=== PATIENT | female | born 1955 | race Hispanic/Latino ===

== ENCOUNTER 2019-08-05 14:34 | Observation (INO) | payer MEDICARE, OTHER ==
[~2019-08-05] VITALS: Ht 160 cm; Wt 67.6 kg
[~2019-08-05 14:34] MED LIST: AMLODIPINE BESY10 MG PO; LOSARTAN POTASS25 MG PO; LYRICA50 MG PO; METFORMIN HCL500 MG PO; METOPROLOL TART25 MG PO
[2019-08-05 16:26] LABS: BASOPHILS % 0.3 % (0.0-1.0); EOSINOPHILS # (AUTO) 0.1 (0.0-0.4); EOSINOPHILS % 0.9 % (0.0-6.0); HEMATOCRIT 42.9 % (34.2-44.1); HEMOGLOBIN 13.8 g/dL (12.0-16.0); LYMPHOCYTES # (AUTO) 1.4 (1.0-3.2); LYMPHOCYTES % 23.4 % (18.0-39.1); MEAN CORPUSCULAR HEMOGLOBIN 27.9 pg (28-32); MEAN CORPUSCULAR HGB CONC 32.2 g/dL (31-35); MEAN CORPUSCULAR VOLUME 86.7 fL (81-99); MONOCYTES # (AUTO) 0.5 (0.2-0.8); MONOCYTES % 8.1 % (4.4-11.3); NEUTROPHILS # (AUTO) 3.9 (2.1-6.9); NEUTROPHILS % 66.8 % (38.7-80.0); PLATELET COUNT 176 x10e3/uL (140-360); RED BLOOD COUNT 4.95 x10e6/uL (3.6-5.1); RED CELL DISTRIBUTION WIDTH 13.2 % (11.7-14.4)
--- NOTE | 2019-08-05 16:26 | Emergency Department Note ---
History of Present Illnes History of Present Illness Chief Complaint: General Medicine Complaints History of Present Illness This is a 64 year old female arrives to the ED generalized malaise and weakness for one week, symptoms of and gradually worsening. Chief Complaint Comment C/O FEELING WEAK AND GENERALIZED MUSCLE ACHES X 1 WEEK NAUSEA NO VOMITING LAST MEAL EARLIER TODAY WHEN SHE HAD A COUPLE OF BITES NEVER SMOKED DENIES ETOH Historian: Patient, Family Member Arrival Mode: Car Duration (how long): hour(s) Progression: worsening Past Medical/Family History Physician Review I have reviewed the patient's past medical and family history. Any updates have been documented here. Past Medical History Recent Fever: Yes Clinical Suspicion of Infectio: Yes New/Unexplained Change in Ment: No Past Medical History: Hypertension, Diabetes, Hyperlipedemia Past Surgical History: Appendectomy, Hysterectomy, Pacer/AICD Other Last Tetanus: UNK Review of Systems Review of Systems Constitutional: Reports no symptoms EENTM: Reports no symptoms Cardiovascular: Reports no symptoms Respiratory: Reports as per HPI Gastrointestinal: Reports no symptoms Genitourinary: Reports no symptoms Musculoskeletal: Reports no symptoms Integumentary: Reports no symptoms Neurological: Reports no symptoms Psychological: Reports no symptoms Endocrine: Reports no symptoms Hematological/Lymphatic: Reports no symptoms Physical Exam Related Data Allergies: Coded Allergies: No Known Allergies (Unverified , 11/04/17) Triage Vital Signs Vital Signs Date Time Temp Pulse Resp B/P (MAP) Pulse Ox O2 Delivery O2 Flow Rate FiO2 08/05/19 14:42 100.0 75 20 142/69 92 Vital signs reviewed: Yes Physical Exam CONSTITUTIONAL Constitutional: Present well-developed, Present well-nourished HENT HENT: Present normocephalic, Present atraumatic, Present oropharynx clear/moist, Present nose normal HENT L/R: Present left ext ear normal, Present right ext ear normal EYES Eyes: Reports PERRL, Reports conjunctivae normal NECK Neck: Present ROM normal PULMONARY Pulmonary: Present effort normal, Present respiratory distress CARDIOVASCULAR Cardiovascular: Present regular rhythm, Present heart sounds normal, Present capillary refill normal, Present normal rate GASTROINTESTINAL Abdominal: Present soft, Present nontender, Present bowel sounds normal GENITOURINARY Genitourinary: Present exam deferred SKIN Skin: Present warm, Present dry MUSCULOSKELETAL Musculoskeletal: Present ROM normal NEUROLOGICAL Neurological: Present alert, Present oriented x 3, Present no gross motor or sensory deficits PSYCHOLOGICAL Psychological: Present mood/affect normal, Present judgement normal Results Laboratory Lab results reviewed: Yes Laboratory comments Laboratory Tests Test 08/05/19 18:42 08/05/19 16:17 White Blood Count 5.78 x10e3/uL (4.8-10.8) Red Blood Count 4.95 x10e6/uL (3.6-5.1) Hemoglobin 13.8 g/dL (12.0-16.0) Hematocrit 42.9 % (34.2-44.1) Mean Corpuscular Volume 86.7 fL (81-99) Mean Corpuscular Hemoglobin 27.9 pg (28-32) Mean Corpuscular Hemoglobin Concent 32.2 g/dL (31-35) Red Cell Distribution Width 13.2 % (11.7-14.4) Platelet Count 176 x10e3/uL (140-360) Neutrophils (%) (Auto) 66.8 % (38.7-80.0) Lymphocytes (%) (Auto) 23.4 % (18.0-39.1) Monocytes (%) (Auto) 8.1 % (4.4-11.3) Eosinophils (%) (Auto) 0.9 % (0.0-6.0) Basophils (%) (Auto) 0.3 % (0.0-1.0) Neutrophils # (Auto) 3.9 (2.1-6.9) Lymphocytes # (Auto) 1.4 (1.0-3.2) Monocytes # (Auto) 0.5 (0.2-0.8) Eosinophils # (Auto) 0.1 (0.0-0.4) Basophils # (Auto) 0.0 (0.0-0.1) Absolute Immature Granulocyte (auto 0.03 x10e3/uL (0-0.1) Sodium Level 138 mmol/L (136-145) Potassium Level 3.6 mmol/L (3.5-5.1) Chloride Level 101 mmol/L (98-107) Carbon Dioxide Level 27 mmol/L (22-29) Anion Gap 13.6 mmol/L (8-16) Blood Urea Nitrogen 17 mg/dL (7-26) Creatinine 0.89 mg/dL (0.57-1.11) Estimat Glomerular Filtration Rate > 60 ML/MIN (60-) BUN/Creatinine Ratio 19 (6-25) Glucose Level 142 mg/dL (74-118) Calcium Level 9.4 mg/dL (8.4-10.2) Total Bilirubin 0.4 mg/dL (0.2-1.2) Aspartate Amino Transf (AST/SGOT) 41 IU/L (5-34) Alanine Aminotransferase (ALT/SGPT) 36 IU/L (0-55) Alkaline Phosphatase 91 IU/L (40-150) Creatine Kinase 25 IU/L (29-168) Creatine Kinase MB 0.30 ng/mL (0-5.0) Troponin I 0.004 ng/mL (0-0.300) Total Protein 7.1 g/dL (6.5-8.1) Albumin 3.2 g/dL (3.5-5.0) Globulin 3.9 g/dL (2.3-3.5) Albumin/Globulin Ratio 0.8 (0.8-2.0) Imaging Imaging results reviewed: Yes Impressions IMPRESSION: 1. Lines and Tubes: Stable left upper chest multilead cardiac device. 2. Lungs are well-inflated. Patchy bibasilar opacities, which may reflect atelectasis. No consolidation or effusion. 3. Cardiomediastinal silhouette is normal. Pulmonary vasculature is normal. 4. No acute bony abnormalities. Procedures 12 Lead ECG Interpretation ECG Interpretation : ECG: ECG 1 Visual Effects Editor: Interpreted by ED physician Prior ECG tracings: reviewed ST segment elevation: III T wave inversion: V3, V4, V5, V6 Critical Care Time Total Critical Care Time (min): 35 Critical care time exclusive o: separately billable procedures Critcal care necessary due to: respiratory failure Assessment & Plan Medical Decision Making MDM 64-year-old female brought to the ED with shortness of breath, dyspnea and generalized malaise. Concerns of Covid 19 related illness Assessment & Plan Final Impression: (1) Dyspnea and respiratory abnormalities (2) Dyspnea Depart Disposition: ADMITTED Last Vital Signs Date Time Temp Pulse Resp B/P (MAP) Pulse Ox O2 Delivery O2 Flow Rate FiO2 08/05/19 14:42 100.0 75 20 142/69 92 Home Meds Reported Medications Pregabalin (LYRICA) 50 Mg Cap, 50 MG PO Q8H, #30 TAB 11/07/17 Losartan Potassium (LOSARTAN POTASSIUM) 25 Mg Tablet, 2 TAB PO DAILY 11/07/17 Metoprolol Tartrate (METOPROLOL TARTRATE) 25 Mg Tablet, 25 MG PO BID, TAB 11/07/17 Metformin Hcl (METFORMIN HCL) 500 Mg Tablet, 500 MG PO DAILY, #60 TAB 11/04/17 STEPHEN ANDRE, Aug 05, 2019 16:09
[2019-08-05 16:47] LABS: ALANINE AMINOTRANSFERASE 36 IU/L (0-55); ALBUMIN 3.2 g/dL (3.5-5.0); ALBUMIN/GLOBULIN RATIO 0.8 (0.8-2.0); ALKALINE PHOSPHATASE 91 IU/L (40-150); ANION GAP 13.6 mmol/L (8-16); BLOOD UREA NITROGEN 17 mg/dL (7-26); BUN/CREATININE RATIO 19 (6-25); CALCIUM 9.4 mg/dL (8.4-10.2); CARBON DIOXIDE 27 mmol/L (22-29); CHLORIDE 101 mmol/L (98-107); CREATINE KINASE 25 IU/L (29-168); CREATININE, SERUM 0.89 mg/dL (0.57-1.11); EST GLOMERULAR FILTRATION RATE > 60 ML/MIN (60-); GLUCOSE 142 mg/dL (74-118); POTASSIUM 3.6 mmol/L (3.5-5.1); SODIUM 138 mmol/L (136-145)
--- NOTE | 2019-08-05 17:17 | Diagnostic Imaging Report ---
Examination: Single AP view of the chest. COMPARISON: AP chest 11/06/2017 INDICATION: Weeks, pacemaker not working, muscle exam nausea IMPRESSION: 1. Lines and Tubes: Stable left upper chest multilead cardiac device. 2. Lungs are well-inflated. Patchy bibasilar opacities, which may reflect atelectasis. No consolidation or effusion. 3. Cardiomediastinal silhouette is normal. Pulmonary vasculature is normal. 4. No acute bony abnormalities. Signed by: Dr. Joey Muñiz M.D. on 08/05/2019 5:14 PM
[2019-08-05] MEDS ORDERED: ACETAMINOPHEN 325 MG TAB PO PRN (21:00)
[2019-08-05] MEDS ORDERED: DEXTROSE 50% SYRINGE 50 ML IV PRN (21:00)
[2019-08-05] MEDS ORDERED: ZOLPIDEM TARTRATE 5 MG TAB PO PRN (21:00)
[2019-08-05] MEDS ORDERED: CEFTRIAXONE SOD 1 GM/NS 50 ML 50 ML IV SCH (21:30)
[2019-08-05] MEDS: INSULIN REGULAR, HUMAN 100 UNIT/1 ML 3ML VIAL SQ SCH (21:34)
[2019-08-05] MEDS ORDERED: AZITHROMYCIN 500MG/NS 250 ML 250 ML IV SCH (22:00)
--- NOTE | 2019-08-05 22:11 | Consultation ---
DATE OF CONSULTATION: Pulmonary Critical Care Consultation CHIEF COMPLAINT: Malaise and fatigue. 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 She also has a history of diabetes and diabetic neuropathy. She now reports fatigue and malaise for several days. She has some mild dyspnea. She denies fevers or cough. She came to the emergency department and was found to have infiltrates on her chest x-ray. She had a COVID test, which is still pending. PAST SURGICAL HISTORY: Status post permanent pacemaker. PAST MEDICAL HISTORY: 1. Diabetes. 2. Hypertension. 3. No prior history of asthma or COPD. ALLERGIES: NO KNOWN DRUG ALLERGIES. SOCIAL HISTORY: The patient does not smoke or drink. FAMILY HISTORY: Family history is noncontributory. REVIEW OF SYSTEMS: The patient has no fever. The patient is not complaining of headache or neck pain. There is no chest pain. There is some mild dyspnea. There is no nausea or vomiting. There is no leg edema. PHYSICAL EXAMINATION: VITAL SIGNS: The patient is afebrile. The blood pressure is 148/69. HEENT: Shows no facial swelling or erythema. CARDIAC: Reveals regular rate and rhythm with normal S1 and S2. LUNGS: Auscultation of lungs reveals crackles at the bases. There is no wheezing. ABDOMEN: Soft and nontender. There is no rebound or guarding. EXTREMITIES: Shows no leg edema or calf tenderness. There is no cyanosis or clubbing. SKIN: Shows no rashes. NEUROLOGICAL: Shows no focal abnormalities. LABORATORY DATA: White blood cell count is 5.7 and the hemoglobin is 13.8. The platelet count is 176. The BUN to creatinine ratio is 17 to 0.89. RADIOGRAPHIC DATA: Shows bilateral infiltrates. IMPRESSION: 1. Viral pneumonia and possible COVID-19 infection. 2. Diabetes. 3. Hypertension. 4. History of a prior pacemaker. PLAN: 1. Judicious use of fluids. 2. Oxygen. 3. DVT prophylaxis. 4. Antipyretics. 5. Monitor and control blood sugars. 6. Monitor and control blood pressure. Dread Flood MD [facility]/[place] /[id number]
[2019-08-05] MEDS: PREGABALIN 50 MG CAP PO SCH (22:34)
--- NOTE | 2019-08-05 23:26 | NUR ---
Received patient from ED via stretcher. Alert and oriented. Patient on a telemetry. Assisted to bed . Bed locked. Call light within reached.
[2019-08-05 23:30] VITALS: BP 137/52
[2019-08-06] VITALS (7 sets, daily range): BP systolic 123–150; BP diastolic 52–67
[2019-08-06 05:33] LABS: BASOPHILS % 0.3 % (0.0-1.0); EOSINOPHILS % 0.6 % (0.0-6.0); HEMATOCRIT 42.6 % (34.2-44.1); HEMOGLOBIN 13.4 g/dL (12.0-16.0); LYMPHOCYTES # (AUTO) 1.4 (1.0-3.2); LYMPHOCYTES % 21.9 % (18.0-39.1); MEAN CORPUSCULAR HEMOGLOBIN 27.9 pg (28-32); MEAN CORPUSCULAR HGB CONC 31.5 g/dL (31-35); MEAN CORPUSCULAR VOLUME 88.6 fL (81-99); MONOCYTES # (AUTO) 0.4 (0.2-0.8); MONOCYTES % 6.5 % (4.4-11.3); NEUTROPHILS # (AUTO) 4.6 (2.1-6.9); NEUTROPHILS % 70.4 % (38.7-80.0); PLATELET COUNT 176 x10e3/uL (140-360); RED BLOOD COUNT 4.81 x10e6/uL (3.6-5.1)
[2019-08-06 05:42] LABS: ALANINE AMINOTRANSFERASE 32 IU/L (0-55); ALBUMIN/GLOBULIN RATIO 0.8 (0.8-2.0); ALKALINE PHOSPHATASE 88 IU/L (40-150); ANION GAP 13.8 mmol/L (8-16); BLOOD UREA NITROGEN 12 mg/dL (7-26); BUN/CREATININE RATIO 15 (6-25); CALCIUM 9.1 mg/dL (8.4-10.2); CARBON DIOXIDE 27 mmol/L (22-29); CHLORIDE 103 mmol/L (98-107); CREATININE, SERUM 0.81 mg/dL (0.57-1.11); EST GLOMERULAR FILTRATION RATE > 60 ML/MIN (60-); GLUCOSE 144 mg/dL (74-118); POTASSIUM 3.8 mmol/L (3.5-5.1); SODIUM 140 mmol/L (136-145)
[2019-08-06] MEDS: PREGABALIN 50 MG CAP PO SCH ×2 (06:05→14:01)
[2019-08-06] MEDS: INSULIN REGULAR, HUMAN 100 UNIT/1 ML 3ML VIAL SQ SCH ×3 (08:44→16:40)
[2019-08-06] MEDS: METOPROLOL TARTRATE 25 MG TAB PO SCH ×2 (08:45→16:37)
[2019-08-06] MEDS ORDERED: LOSARTAN POTASSIUM 100 MG TAB PO SCH (09:00)
--- NOTE | 2019-08-06 15:10 | Progress Note ---
DATE: SUBJECTIVE: The patient feels better. She has less dyspnea and less cough. She is not complaining of chest pain. Her COVID test is negative. PHYSICAL EXAMINATION: VITAL SIGNS: Blood pressure is 131/53, saturation is 97%. HEENT: No facial swelling or erythema. CARDIAC: Regular rate and rhythm with normal S1, S2. LUNGS: Auscultation of lungs reveals crackles at the bases. There is no wheezing. ABDOMEN: Soft, nontender. There is no rebound or guarding. EXTREMITIES: No leg edema or calf tenderness. There is no cyanosis or clubbing. SKIN: No rashes. NEUROLOGICAL: No focal abnormalities. LABORATORY DATA: White blood cell count is 6.5 and hemoglobin is 13.4. The platelet count is 176. BUN to creatinine ratio is normal. Other electrolytes are within normal limits. Albumin is 3. IMPRESSION: 1. Viral pneumonia and possible coronavirus disease-19 infection. 2. Diabetes. 3. Hypertension. PLAN: 1. Okay for discharge home. 2. Complete outpatient antibiotics. 3. Antipyretics. 4. Self quarantine. 5. Follow up with physician in 2 weeks. Dread Flood MD [facility]/[place] /[id number]
[2019-08-06] MEDS ORDERED: ENOXAPARIN SOD INJ 40 MG/0.4 ML SYR SC SCH (17:00)
[2019-08-06] MEDS ORDERED: MUCINEX DM ER1 EAC1 PO (17:46)
--- NOTE | 2019-08-06 18:06 | NUR ---
MD ordered for patient to go home with IS. Gave patient IS and patient demonstrated how to use x4. Patient denies any questions.
--- NOTE | 2019-08-06 18:44 | NUR ---
Gave patient discharge teaching, denies any questions. Patient left via wheelchair with all belongings.
--- NOTE | 2019-08-06 21:21 | History and Physical ---
HISTORY AND PHYSICAL, SHORT-STAY, AND DISCHARGE SUMMARY CONSULTING PHYSICIANS: Dr. Dread Flood. PRIMARY CARE PHYSICIAN: Dr. Dread Sykes. CHIEF COMPLAINT: Malaise and fatigue. HISTORY OF PRESENT ILLNESS: The patient is a 64-year-old female with a history of third-degree heart block several years ago, which required a permanent pacemaker at that time. She reported to the emergency department with complaints of fatigue and malaise for several days along with some mild shortness of breath. She denied any fever or cough. She has underlying diabetes and states her fingerstick blood glucose usually runs about 150 mg/dL at home. Per the emergency department physician's note, impression is dyspnea and respiratory abnormalities. Per Dr. Flood's note, impression is viral pneumonia and possible COVID-19 infection. PAST MEDICAL HISTORY: Diabetes, hypertension, and hyperlipidemia. PAST SURGICAL HISTORY: Appendectomy, hysterectomy, and pacemaker. PAST FAMILY HISTORY: Noncontributory. SOCIAL HISTORY: The patient denies tobacco, alcohol, or illicit drug use. ALLERGIES: NO KNOWN DRUG ALLERGIES. REVIEW OF SYSTEMS: GENERAL: The patient has no complaints of fever or chills. HEENT: Eyes and ears, no complaints. Nose, nasal congestion. RESPIRATORY: Mild shortness of breath. No dyspnea on exertion, productive cough with white phlegm. GENITOURINARY: No complaints of difficulty urinating. PSYCHIATRIC: No complaints of anxiety or depression. CARDIOVASCULAR: No chest pain or palpitations. GASTROINTESTINAL: No complaints of nausea, vomiting, diarrhea, or constipation. She eats well. MUSCULOSKELETAL: No complaints. NEUROLOGIC: No complaints. ENDOCRINE: No complaints. HEMATOLOGIC: No complaints. PHYSICAL EXAMINATION: VITAL SIGNS: Temperature 98.2, T-max 100.0, heart rate 92, blood pressure 123/62, respirations 16, and oxygen saturation 95%. BMI 26.39. GENERAL: Awake, alert, oriented, supine. LUNGS: Diminished with crackles bibasilarly. HEENT: EOMI. NECK: Supple. CARDIOVASCULAR: Regular rate and rhythm. No murmur. ABDOMEN: Bowel sounds positive. Soft, nontender. EXTREMITIES: No clubbing, cyanosis, or edema. No signs of DVT. NEUROLOGICAL: GCS 15. LABORATORY DATA: On admission, WBC 5.78, hemoglobin 13.8, hematocrit 42.9, and platelets 176. Sodium 138, potassium 3.6, chloride 101, CO2 of 27, anion gap 13.6, BUN 17, creatinine 0.89, estimated GFR greater than 60, glucose 142, calcium 9.4, total bilirubin 0.4, AST 41, ALT 36, and alkaline phosphatase 91. Creatine kinase 25, CK-MB 0.3, troponin I 0.004, total protein 7.1, albumin 3.2, and glucose 114. Serology; Dixon virus by PCR not detected on 08/04. The patient states when she got a dixon virus test, it was very uncomfortable for her. RADIOLOGY: Chest x-ray 08/04 showed stable left upper chest, multi-lead cardiac device. Lungs well inflated. Patchy basilar opacities which may reflect atelectasis. No consolidation or effusion. No 12-lead EKG in the chart. IMPRESSION AND DISCHARGE DIAGNOSES: 1. Viral pneumonia. 2. Controlled type 2 diabetes mellitus. 3. Hypertension, controlled. 4. History of a prior pacemaker placement during her stay. Judicious use of fluids was used, oxygen, deep venous thrombosis prophylaxis, antipyretics. I have ordered an incentive spirometer for patient to use at home. We will send her home with a prescription for Mucinex DM as this is likely viral. No antibiotic prescription at this time. The patient to follow up with her PCP, Dr. Sykes in 1-2 weeks. Follow up with Dr. Flood as directed. Time spent 60 minutes. Billing code [id number]. Dictated by Jhon Schmitz NP Mark Bradshaw MD [facility] /[id number]
--- OUTSIDE RECORDS SUMMARY | 2019-09-19 19:17 | XMS REPORT | Continuity of Care Document ---
Author Author [facility] t Organization [facility] Address [address] [place] [address] Phone Unavailable Care Team Providers Care Jd Edwards Developer Name Role Phone GARRET ENRIQUE, MD OSORIO PCP ELLIE BRUCE Attphys Unavailable GARRET, SANTIAGO Attphys Unavailable ELLIE BRUCE Admphys Unavailable GARRET, SANTIAGO Admphys Unavailable Payers Payer Name Policy Type Policy Number Effective Date Expiration Date Bella winkler [facility] [id number] 2019 00:00:00 [facility] Medicare A & B [id number] 2018 00:00:00 [facility] [id number] 2017 00:00:00 [facility] Problems Condition Name Condition Details Condition Category Status Onset Date Resolution Date Last Treatment Date Treating Clinician Comments Source Bradyarrhythmia Bradyarrhythmia Problem Active [facility] Presence of cardiac pacemaker Pacemaker Problem Active [facility] Pulmonary edema Pulmonary edema Problem Active [facility] Complete atrioventricular block Third degree AV block Problem Active [facility] Dyspnea and respiratory abnormality Problem Active [facility] Allergies, Adverse Reactions, Alerts Allergy Name Allergy Type Status Severity Reaction(s) Onset Date Inacti ve Date Treating Clinician Comments Source benzonatate DA Active CA 2016-05-16 00:00:00 [facility] Social History Social Habit Start Date Stop Date Quantity Comments Source Sex Assigned At 1955 00:00:00 1955 00:00:00 Female [facility] Medications Ordered Medication Name Filled Medication Name Start Date Stop Da te Current Medication? Ordering Clinician Indication Dosage Frequency Signature (SIG) Comments Components Source Guaifenesin/Dextromethorphan (Mucinex Dm Er 1,200-60 M g Tab) 1 Each TBMP.12HR Guaifenesin/Dextromethorphan (Mucinex Dm Er 1,200-60 Mg Tab) 1 Each TBMP.12HR 2019-08-06 17:46:00 Yes 1 Twice A Day [facility] Losartan Potassium Losartan Potassium Yes 2 Da citlali [facility] Metformin Hcl Metformin Hcl Yes 500 Daily [facility] Metoprolol Tartrate Metoprolol Tartrate Yes 25 Twice A Day [facility] Pregabalin (Lyrica) 50 Mg CAP Pregabalin (Lyrica) 50 Mg CAP Yes 50 Every 8 Hours [facility] Amlodipine Besylate Amlodipine Besylate 2017-11-07 00:00:00 No 10 Daily [facility] Vital Signs Vital Name Observation Time Observation Value Comments Source Body Temperature 2019-08-06 16:42:00 99.7 [degF] [facility] Weight 2019-08-06 02:26:00 149.06 [lb_av] [facility] BMI (Body Mass Index) 2019-08-06 02:26:00 26.4 kg/m2 [facility] Procedures This patient has no known procedures. Plan of Care Planned Activity Planned Date Details Comments Source Instructions COVID-19: 05/06/2019 [facility] Instructions Dyspnea [facility] Encounters Start Date/Time End Date/Time [facility] Ad[facility] ID Source 2017-11-04 07:35:00 2017-11-07 18:10:00 Discharged Inpatient 1 SANTIAGO COMBS [facility] [id number] [facility] Results Test Description Test Time Test Comments Results Result Comments Source Blood leukocytes automated count (number/volume) 2019-08-06 04:40:00 Test Item White Blood Count (test code = 6690-2) 6.49 4.8-10.8 [facility] erythrocytes automated count (number/volume)2019-08-06 04:40:00* Test Item Value Reference Range Interpretation Comments Red Blood Count (test code = 789-8) 4.81 3.6-5.1 [facility] Arlington[facility] hemoglobin measurement (moles/volume)2019-08-06 04:40:00* Test Item Value Reference Range Interpretation Comments Hemoglobin (test code = 90725-8) 13.4 12.0-16.0 [facility] ArlingtonAutomated blood hematocrit (volume fraction)2019-08-06 04:40:00* Test Item Value Reference Range Interpretation Comments Hematocrit (test code = 4544-3) 42.6 34.2-44.1 [facility] ArlingtonAutomated erythrocyte mean corpuscular estljn8734-40-92 04:40:00* Test Item Value Reference Range Interpretation Comments Mean Corpuscular Volume (test code = 787-2) 88.6 81-99 [facility] ArlingtonAutom[facility] erythrocyte mean corpuscular hemoglobin (mass per erythrocyte)2019-08-06 04:40:00* Test Item Value Reference Range Interpretation Comments Mean Corpuscular Hemoglobin (test code = 785-6) 27.9 28-32 [facility] ArlingtonAutomated erythrocyte mean corpuscular hemoglobin concentration measurement (mass/volume)2019-08-06 04:40:00* Test Item Value Reference Range Interpretation Comments Mean Corpuscular Hemoglobin Concent (test code = 786-4) 31.5 31-35 [facility] ArlingtonRDW YcpSo-Qop2325-42-16 04:40:00* Test Item Value Reference Range Interpretation Comments Red Cell Distribution Width (test code = 42862-2) 13.0 11.7 -14.4 [facility] ArlingtonAutomated blood platelet count (count/volume)2019-08-06 04:40:00* Test Item Value Reference Range Interpretation Comments Platelet Count (test code = 777-3) 176 140-360 [facility] ArlingtonAutomated blood segmented neutrophil count as percentage of total woptlbixrc6769-44-30 04:40:00* Test Item Value Reference Range Interpretation Comments Neutrophils (%) (Auto) (test code = 93400-6) 70.4 38.7-80.0 [facility] ArlingtonAutomated blood lymphocyte count as percentage ot total rgafsrkizl7669-60-60 04:40:00* Test Item Value Reference Range Interpretation Comments Lymphocytes (%) (Auto) (test code = 736-9) 21.9 18.0-39.1 [facility] ArlingtonAutomated blood monocyte count as percentage of total infrfijppr2290-39-15 04:40:00* Test Item Value Reference Range Interpretation Comments Monocytes (%) (Auto) (test code = 5905-5) 6.5 4.4-11.3 [facility] ArlingtonAutomated blood eosinophil count as percentage of total rwhemswtkp6858-54-89 04:40:00* Test Item Value Reference Range Interpretation Comments Eosinophils (%) (Auto) (test code = 713-8) 0.6 0.0-6.0 [facility] ArlingtonAutomated blood basophil count as percentage of total dxednutoqd5324-34-41 04:40:00* Test Item Value Reference Range Interpretation Comments Basophils (%) (Auto) (test code = 706-2) 0.3 0.0-1.0 [facility] ArlingtonFluoroscopic procedure less than one hour rgqxhpvh4771-60-78 04:40:00* Test Item Value Reference Range Interpretation Comments IM GRANULOCYTES % (test code = IM GRANULOCYTES %) 0.3 0.0- 1.0 [facility] ArlingtonAutomated blood neutrophil count 2019-08-06 04:40:00* Test Item Value Reference Range Interpretation Comments Neutrophils # (Auto) (test code = 751-8) 4.6 2.1-6.9 [facility] ArlingtonBlood lymphocytes count (number/volume) 2019-08-06 04:40:00* Test Item Value Reference Range Interpretation Comments Lymphocytes # (Auto) (test code = 92242-3) 1.4 1.0-3.2 [facility] ArlingtonBlood monocytes automated count (number/volume)2019-08-06 04:40:00* Test Item Value Reference Range Interpretation Comments Monocytes # (Auto) (test code = 742-7) 0.4 0.2-0.8 [facility] ArlingtonAutomated blood eosinophil count 2019-08-06 04:40:00* Test Item Value Reference Range Interpretation Comments Eosinophils # (Auto) (test code = 711-2) 0.0 0.0-0.4 [facility] ArlingtonAutomated blood basophil count (count/volume)2019-08-06 04:40:00* Test Item Value Reference Range Interpretation Comments Basophils # (Auto) (test code = 704-7) 0.0 0.0-0.1 [facility] ArlingtonFluoroscopic procedure less than one hour xvmactua6039-13-93 04:40:00* Test Item Value Reference Range Interpretation Comments Absolute Immature Granulocyte (auto (tari t code = Absolute Immature Granulocyte (auto) 0.02 0-0.1 [facility] or plasma sodium measurement (moles/volume)2019-08-06 04:40:00* Test Item Value Reference Range Interpretation Comments Sodium Level (test code = 2951-2) 140 136-145 [facility]erum or plasma potassium measurement (moles/volume)2019-08-06 04:40:00* Test Item Value Reference Range Interpretation Comments Potassium Level (test code = 2823-3) 3.8 3.5-5.1 [facility] or plasma chloride measurement (moles/volume)2019-08-06 04:40:00* Test Item Value Reference Range Interpretation Comments Chloride Level (test code = 2075-0) 103 98-107 [facility] Hospitalerum or plasma carbon dioxide, total measurement (moles/volume)2019-08-06 04:40:00* Test Item Value Reference Range Interpretation Comments Carbon Dioxide Level (test code = 2028-9) 27 22-29 [facility]erum or plasma anion ltt0052-13-76 04:40:00* Test Item Value Reference Range Interpretation Comments Anion Gap (test code = 68795-4) 13.8 8-16 [facility] or plasma urea nitrogen measurement (mass/volume)2019-08-06 04:40:00* Test Item Value Reference Range Interpretation Comments Blood Urea Nitrogen (test code = 3094-0) 12 7-26 [facility] or plasma creatinine measurement (mass/volume)2019-08-06 04:40:00* Test Item Value Reference Range Interpretation Comments Creatinine (test code = 2160-0) 0.81 0.57-1.11 [facility] or plasma urea nitrogen/creatinine mass kmkmg5360-95-28 04:40:00* Test Item Value Reference Range Interpretation Comments BUN/Creatinine Ratio (test code = 3097-3) 15 6-25 [facility] ArlingtonEstimated glomerular filtration rate (GFR) yrnjdaacxiusg7940-55-95 04:40:00* Test Item Value Reference Range Interpretation Comments Estimat Glomerular Filtration Rate (test code = 520154923) > 60 >60 Ranges were taken from the National Kidney Disease Education Program and the [facility] literature.Reference ranges:60 or greater: Smxzmt92-58 ( for 3 consecutive months): Chronic kidney disease 15 or less: Kidney failureTexas Health Heart & Vascular Hospital ArlingtonGlucose rtgmzytchjl2067-38-58 04:40:00* Test Item Value Reference Range Interpretation Comments Glucose Level (test code = KTC4186) 144 74-118 [facility]er[facility] or plasma calcium measurement (mass/volume)2019-08-06 04:40:00* Test Item Value Reference Range Interpretation Comments Calcium Level (test code = 61706-6) 9.1 8.4-10.2 [facility]erum or plasma total bilirubin measurement (mass/volume)2019-08-06 04:40:00* Test Item Value Reference Range Interpretation Comments Total Bilirubin (test code = 1975-2) 0.4 0.2-1.2 [facility] ArlingtonFluoroscopic procedure less than one hour bteohytx8944-53-13 04:40:00* Test Item Value Reference Range Interpretation Comments Aspartate Amino Transf (AST/SGOT) (test code = Aspartate Amino Transf (AST/SGOT)) 35 5-34 [facility] Hospitalerum or plasma alanine aminotransferase measurement (enzymatic activity/volume)2019-08-06 04:40:00* Test Item Value Reference Range Interpretation Comments Alanine Aminotransferase (ALT/SGPT) (test code = 1742-6) 32 0-55 [facility] Hospitalerum or plasma protein measurement (mass/volume)2019-08-06 04:40:00* Test Item Value Reference Range Interpretation Comments Total Protein (test code = 2885-2) 7.0 6.5-8.1 [facility] Hospitalerum or plasma albumin measurement (mass/volume)2019-08-06 04:40:00* Test Item Value Reference Range Interpretation Comments Albumin (test code = 1751-7) 3.0 3.5-5.0 [facility] ArlingtonPlasma globulin measurement (mass/volume) 2019-08-06 04:40:00* Test Item Value Reference Range Interpretation Comments Globulin (test code = 24982-1) 4.0 2.3-3.5 [facility] Hospitalerum or plasma albumin/globulin mass cegpt3050-53-29 04:40:00* Test Item Value Reference Range Interpretation Comments Albumin/Globulin Ratio (test code = 1759-0) 0.8 0.8-2.0 [facility]er[facility] or plasma alkaline phosphatase measurement (enzymatic activity/volume)2019-08-06 04:40:00* Test Item Value Reference Range Interpretation Comments Alkaline Phosphatase (test code = 6768-6) 88 40-150 [facility] ArlingtonCapillary blood glucose measurement by glucometer (mass/volume)2019-08-05 21:32:00* Test Item Value Reference Range Interpretation Comments Bedside Glucose (test code = 69930-6) 114 70-120 Meter ID: [id number] Health Heart & Vascular Hospital ArlingtonFluoroscopic procedure less than one hour bgooejee0224-92-67 18:42:00* Test Item Value Reference Range Interpretation Comments Coronavirus (PCR) (test code = Coronavirus (PCR)) NOT DETECTED NOTD ETECTED SARS-COV2/RT-PCRNegative results do not preclude SARS-CoV-2 infection and should not be used as the sole basis for patient management decisions. Negative result s must be combined with clinical observations, patient history, and epidemiologi sung information. A false negative result may occur if a specimen is improperly c ollected, transported or handled.The limit of detection for this assay is 250 co pies/mLThe SARS-CoV-2 test is a rapid, real-time RT-PCR test intended for the qu alitative detection of nucleic acid from SARS-CoV-2 in nasopharyngeal swab speci men collected from individuals suspected of COVID-19 by their healthcare provide r. This test has not been Food and Drug Administration (FDA) cleared or approved and has been authorized by FDA under an Emergency Use Authorization (EUA). This EUA will be effective until the declaration that circumstances exist justifying the authorization of the emergency use of in vitro diagnostic test for detectio n and or diagnosis of COVID-19 is terminated under section 564(b) of the Act, or the the EUA is revoked under 564(g) of the ACT.Testing performed by [address] SINGLE (PORTABLE)2019-08-05 17:13:00 [place] [address] Patient Name: GAYLE CHRISTIAN MR #: [id number] : 1955 Age/Sex: 64/F Req #: [id number] Adm Physician: ELLIE BRUCE MD Ordered by: STEPHEN ANDRE DO Report #: [id number] Location: [facility] Room/Bed: [place] [address] Procedure: [id number] DX/CHEST SINGLE (PORTABLE) Exam Date: 08/05/19 Exam Time: 1644 REPORT STATUS: Signed Examination: S alex AP view of the chest. COMPARISON: AP chest 11/06/2017 INDICATION: Weeks, pacemaker not working, muscle exam nausea IMPRESSION: 1. Lines and Tubes: Stable left upper chest multilead cardiac device. 2. Lungs are well-inflated. Patchy bibasilar opacities, which may reflect atelectasis. No consolidation or effusion. 3. Cardiomediastinal silhouette is normal. Pu lmonary vasculature is normal. 4. No acute bony abnormalities. Signed by : Dr. Joey Valladares M.D. on 08/05/2019 5:14 PM Dictated By: JOEY GRIFFIN MD 13 Transcri bed By: SALLY on 08/05/191713 COPY TO: STEPHEN ANDRE DO Serum or plasma creatine kinase measurement (enzymatic activity/volume) 2019-08-05 16:17:00* Test Item Value Reference Range Interpretation Comments Creatine Kinase (test code = 2157-6) 25 29-168 [facility]er[facility] or plasma creatine kinase MB measurement (mass/volume)2019-08-05 16:17:00* Test Item Value Reference Range Interpretation Comments Creatine Kinase MB (test code = 03283-2) 0.30 0-5.0 [facility] ArlingtonTroponin I measurement by highly sensitive enzyme wzvrwjuvzbn2209-14-82 16:17:00* Test Item Value Reference Range Interpretation Comments Troponin I (test code = 35728-7) 0.004 0-0.300 [facility] ArlingtonTHYROID PROFILE W/IED1290-27-18 10:28:00 * Test Item Value Reference Range Interpretation Comments T3 UPTAKE (test code = T3UP) 34.0 % 30.0-40.0 N T4 (THYROXINE) (test code = T4) 9.7 ug/dL 4.5-13.9 N T7 (FREE THYROXINE INDEX) (test code = T7) 3.29 FTI 1.3-5.1 N THYROID STIMULATING HORMONE (test code = TSH) 1.460 uIU/mL 0.36-3.7 4 N TSH REFERENCE RANGES: EUTHYROID: 0.35 - 4.3 mIU/mL HYPO : > 5.5 mIU/mL HYPER : < 0.35 mIU/mL - XR RIBS UNI W/CXR 3+V SF9561-63-57 09:42:00 [facility] 1955 Age/S:63 /F [address] [facility] Unit#:[id number] Loc: [place] [address] Phys: Ellie Vaughn DO Dis Date: PHONE #: [phone] Status: REG CLI FAX #: [phone] Exam Date: 05/03/2018 Reason: FALL AT HOME SEVERE PAIN EXAMS: CPT CODE: [id number] XR RIBS UNI W/CXR 3+V [place] [address] HISTORY: Fall and pain. COMPARISON: None available. Chest x-ray and right rib series: No pneumothorax. The lungs are clear of infiltrates, effusion or congestion. Left ICD with the leads in the right atrium and right ventricle. Cardiac and the mediastinal silhouette are normal. Nondisplaced right posterolateral seventh and eighth rib fractures. IMPRESSION: Nondisplaced posterior lateral right seventh and eighth rib fractures. No pneumothorax. The lungs are clear. Electr onically Signed by Rehan Luis on 05/03/2018 at 0942 Reported and signed by: Billy Luis M.D. CC: Ellie Villanueva DO Technologist: MATTHEW CASTILLO, RT(R),CT Trnscrpt Data: 05/03/2018 (0942) t.FRANCESR.TH4 Orig Print D/T: S: 05/03/2018 (0738) PAGE 1 Signed Report ECHO COMPLETE (ECHOCARDIOGRAM)2017-11-08 16:42:00 [place] [address] Patient Name : GAYLE CHRISTIAN MR #: [id number] : 1955 Age/Sex: 62/F Adm Physician : SANTIAGO COMBS MD Admit Date : 11/04/17 Location : ICU Room/Bed : ICU 1953 REPORT: Cardiology Report DATE OF STUDY: ECHOCARDIOGRAM ATTENDING PHYSICIAN: Dr. Santiago alcantara. Previous echocardiogram was on November 04, 2017. Please refer t o that report. The study is suboptimal in quality compared to the previo us echocardiogram. The left ventricular apex is poorly visualized. M-MO DE: Top normal left atrial size. Normal left ventricular wall thickness. B orderline left ventricular contractility. Normal mitral and aortic valves. No pericardial effusion. SECTOR SCAN: Suboptimal study. Poor image qual ity. Normal chamber wall dimensions. Borderline left ventricular contractil ity. [place] may be hypokinetic. Mitral, aortic and tricuspid valves are gross ly normal. There is no pericardial effusion. Pacemaker wires seen in the ri ght ventricle and right atrium. CARDIAC DOPPLER STUDY WITH COLOR: Trace mitral and tricuspid regurgitation. Evidence of diastolic dysfunction. CONCLUSIONS: 1. Suboptimal study with poorly visualized left ventricular ap ex. Compared to the previous echocardiogram on November 04, 2017, the left ventricular image is much poorer in quality. The apex may be slightly hyp okinetic. 2. Atrioventricular pacemaker present on the right side. 3. Diasto lic dysfunction. 4. Trace mitral and tricuspid regurgitation. Job#: [id number] EV cc: DANIA COMBS MD Signature Date Dictated By: JANICE NICHOLS MD Transcribed By: EDS on 11/08/17 <Electronically signed by JANICE NICHOLS MD> <<Signature on File>>11/18/17 1244 COPY TO: [facility]ANGEHRWQX6600-17-35 18:01:00 [place] [address] Patient Name: GAYLE CHRISTIAN MR #: [id number] : [birth year] Age/Sex: 62/F Req #: [id number] Adm Physician: SANTIAGO MCDOWELL MD Ordered by: SANTIAGO COMBS MD Report #: [id number] Location: ICU Room/Bed: [place] [address] Procedure: [id number] US/US LI ENE Exam Date: 11/07/17 Exam Time: 1639 REPORT STATUS: Signed EXAM: Right Upper Quadrant Ultrasound INDICATION: COMPARISON: None. TECHNIQUE: Transverse and longitudinal images of the right upper abdomen were obtained. FINDINGS: Liver: Size: 15.4 cm in the right midclavicular line, normal Appearance: Increa sed echogenicity, smooth contour Mass: No focal masses Gallbladder: Stones/Sludge: None Wall: 0.2 cm Appearance: No pericholecy stic fluid or hydrops. Sonographic Dawkins's Sign: Negative Bile Du cts: Intrahepatic Ducts: No dilatation Extrahepatic Ducts: Common bile duct measures 0.3 cm, no dilatation Pancreas: Limited visualize d pancreas is grossly unremarkable. Right Kidney: Size: 10.7 cm Echogenicity: Normal Parenchymal thickness: Normal Collecti ng system: No hydronephrosis Stones: None Cyst/Mass: None Ves sels: Aorta: Visualized portions are normal Inferior Vena Cava: Vi sualized portions are normal Main Portal Vein: 1 cm, normal size with hep atopetal flow. Free Fluid: No ascites or pleural effusion IMPRE SSION: Hepatic steatosis. Otherwise, unremarkable right upper quadrant ultraso und. Signed by: Dr. Venu Davison MD on 11/07/2017 6:04 PM Dictated By: VENU DAVISON MD 1804 Transcribed By: SALLY on 11/07/174 COPY TO: SANTIAGO KONG MD Bedside Okvwaaq6699-06-12 17:17:00* Test Item Value Reference Range Interpretation Comments Bedside Glucose (test code = 07700-6) 104 70-120 Meter ID: [id number] [facility] Spine & Surgical Hospitalodium Level 2017-11-07 05:17:00* Test Item Value Reference Range Interpretation Comments Sodium Level (test code = 2951-2) 141 136-145 [facility] ArlingtonPotassium Ynefu3429-28-94 05:17:00* Test Item Value Reference Range Interpretation Comments Potassium Level (test code = 2823-3) 4.5 3.5-5.1 [facility] ArlingtonChloride Uuktj7313-57-82 05:17:00* Test Item Value Reference Range Interpretation Comments Chloride Level (test code = 2075-0) 105 98-107 [facility] ArlingtonCarbon Dioxide Xzghy6352-93-82 05:17:00* Test Item Value Reference Range Interpretation Comments Carbon Dioxide Level (test code = 2028-9) 24 22-29 [facility] ArlingtonAnion Yeq1532-87-55 05:17:00* Test Item Value Reference Range Interpretation Comments Anion Gap (test code = 39402-1) 16.5 8-16 H [facility] ArlingtonBlood Urea Ocpvgnxp9751-61-71 05:17:00* Test Item Value Reference Range Interpretation Comments Blood Urea Nitrogen (test code = 3094-0) 21 7-26 [facility] ArlingtonCreatinine2018-09-18 05:17:00* Test Item Value Reference Range Interpretation Comments Creatinine (test code = 2160-0) 0.77 0.57-1.11 [facility] ArlingtonBUN/Creatinine Jdnvr6178-26-61 05:17:00* Test Item Value Reference Range Interpretation Comments BUN/Creatinine Ratio (test code = 3097-3) 27 6-25 H [facility] ArlingtonEstimat Glomerular Filtration Rate 2017-11-07 05:17:00* Test Item Value Reference Range Interpretation Comments Estimat Glomerular Filtration Rate (test code = 237432398) 60- >60 Ranges were taken from the National Kidney Disease Education Program and the [facility] literature.Reference ranges:60 or greater: Vrxggk65-52 ( for 3 consecutive months): Chronic kidney disease 15 or less: Kidney failureTexas Health Heart & Vascular Hospital ArlingtonGlucose Ymobs5954-03-36 05:17:00* Test Item Value Reference Range Interpretation Comments Glucose Level (test code = FVX5249) 134 74-118 H [facility] ArlingtonCalcium Mrumu5986-36-40 05:17:00* Test Item Value Reference Range Interpretation Comments Calcium Level (test code = 99619-5) 9.7 8.4-10.2 [facility] ArlingtonTotal Lwwyafzwg2583-77-17 05:17:00* Test Item Value Reference Range Interpretation Comments Total Bilirubin (test code = 1975-2) 0.9 0.2-1.2 [facility] ArlingtonAspartate Amino Transf (AST/SGOT) 2017-11-07 05:17:00* Test Item Value Reference Range Interpretation Comments Aspartate Amino Transf (AST/SGOT) (test code = Aspartate Amino Transf (AST/SGOT)) 16 5-34 [facility] ArlingtonAlanine Aminotransferase (ALT/SGPT) 2017-11-07 05:17:00* Test Item Value Reference Range Interpretation Comments Alanine Aminotransferase (ALT/SGPT) (test code = 1742-6) 45 0-55 [facility] ArlingtonTotal Uzodljq4462-12-76 05:17:00* Test Item Value Reference Range Interpretation Comments Total Protein (test code = 2885-2) 7.1 6.5-8.1 [facility] ArlingtonAlbumin2018-09-18 05:17:00* Test Item Value Reference Range Interpretation Comments Albumin (test code = 1751-7) 3.2 3.5-5.0 L [facility] ArlingtonGlobulin2018-09-18 05:17:00* Test Item Value Reference Range Interpretation Comments Globulin (test code = 99556-0) 3.9 2.3-3.5 H [facility] ArlingtonAlbumin/Globulin Atxbt0919-75-99 05:17:00 * Test Item Value Reference Range Interpretation Comments Albumin/Globulin Ratio (test code = 1759-0) 0.8 0.8-2.0 [facility] ArlingtonAlkaline Gjhiokbcxuv1782-30-66 05:17:00* Test Item Value Reference Range Interpretation Comments Alkaline Phosphatase (test code = 6768-6) 93 40-150 [facility] ArlingtonFerritin2018-09-17 19:15:00* Test Item Value Reference Range Interpretation Comments Ferritin (test code = 2276-4) 312.90 4.63-204.00 H [facility] ArlingtonIron Kpozg7115-71-54 19:02:00* Test Item Value Reference Range Interpretation Comments Iron Level (test code = 2498-4) 22 50-170 L [facility] ArlingtonCHEST SINGLE (PORTABLE)2017-11-06 12:49:00 [place] [address] Patient Name: GAYLE CHRISTIAN MR #: [id number] : 1955 Age/Sex: 62/F Req #: [id number] Adm Physician: SANTIAGO COMBS MD Ordered by: JANICE NICHOLS MD Report #: [id number] Location: ICU Room/Bed: [place] [address] Procedure: [id number] DX/CHEST SINGLE (PORTABLE) Exam Date: Exam Time: REPO RT STATUS: Signed Examination: Single AP view of the chest. COMPARISON: November 04, 2017 INDICATION: Postoperative for pacemaker DISCUS BALDEMAR: Lines/tubes: Interval placement of a 2-lead pacemaker with leads ove rlying the right atrial appendage and right ventricle. Lungs: Central pu lmonary venous congestion. No consolidation. Pleura: There is no pleural e ffusion or pneumothorax. Heart and mediastinum: The heart and the mediasti num are unremarkable. Bones and soft tissues: No acute bony abnormalities. IMPRESSION: Left sided 2 lead pacemaker placed. No pneumothorax . Signed by: Dr. Mecca Mcgregor M.D. on 11/06/2017 12:50 PM Dictated By: MECCA MCGREGOR MD 1250 COPY TO: JANICE NICHOLS MD ECHO COMPLETE (ECHOCARDIOGRAM)2017-11-05 20:18:00 [place] [address] Patient Name : GAYLE CHRISTIAN MR #: [id number] : 1955 Age/Sex: 62/F Adm Physician : SANTIAGO COMBS MD Admit Date : 11/04/17 Location : ICU Room/Bed : [place] [address] REPORT: Cardiology Report DATE OF STUDY: ECHOCARDIOGRAM ATTENDING PHYSICIAN: Dr. Nichols. M-MODE: Normal chamber wall dimensions. Normal contractility. Normal m itral and aortic valves. No pericardial effusion. SECTOR SCAN: Normal ty mber wall dimensions. Normal contractility. Normal mitral, aortic, and tric uspid valves. No pericardial effusion. CARDIAC DOPPLER STUDY WITH COLOR: Trace mitral tricuspid regurgitation. Pulmonary artery systolic pressure est imated at 22 mmHg. CONCLUSIONS 1. Left ventricular ejection fraction is a pproximately 65%. 2. Trace mitral and tricuspid regurgitation. D Job#: [id number] AKU Si gnature Date Dictated By: JANICE NICHOLS MD Transcribed By: EDS on 11/05/17 <Electronically signed by JANICE NICHOLS MD><<Signature on File>> 11/08/17 1010 COPY TO: PELVIS AP 1-2 [id number] 12:01:00 [place] [address] Patient Name: GAYLE CHRISTIAN MR #: [id number] : 1955 Age/Sex: 62/F Req #: [id number] Adm Physician: JANICE MORAN MD Ordered by: SANTIAGO COMBS MD Report #: [id number] Location: [facility] Room/Bed: [place] [address] Procedure: [id number] DX/PELVIS AP 1-2 VIEWS Exam Date: 11/05/17 Exam Time: 1145 REPORT STATUS: Signed Pelvis CPT code: 33354 Indication: Tailbo ne pain Technique: Portable AP image of the pelvis obtained. Compariso n: None Findings: No diastases of the pubic symphysis or sacroiliac chase ints. No evidence of fracture, dislocation, focal osseous lesions. The distal coccyx is obscured due to bowel gas and soft tissues. No degenerative changes of the hips or spine. IMPRESSION: No osseous abnormalities to explain pain. If there is concern for osteomyelitis, bone scan or MRI are more sensiti ve modalities to identify osteomyelitis. Signed by: Dr. Arcelia Hicks MD on 11/05/2017 12:03 PM Dictated By: ARCELIA HICKS MD Electronica lly Signed By: ARCELIA HICKS MD on 11/05/17 1203 Transcribed By: SALLY on 11/05/17 1203 COPY TO: SANTIAGO COMBS MD Magnesium Level 2017-11-05 11:19:00* Test Item Value Reference Range Interpretation Comments Magnesium Level (test code = 33829-6) 1.7 1.3-2.1 [facility] ArlingtonTriglycerides Dklpd0223-69-78 05:36:00* Test Item Value Reference Range Interpretation Comments Triglycerides Level (test code = 2571-8) 101 0-149 [facility] ArlingtonCholesterol Tgemj7105-82-68 05:36:00* Test Item Value Reference Range Interpretation Comments Cholesterol Level (test code = 2093-3) 155 0-199 Less than 200 mg/dL Low Veps291 - 239 mg/dL Borderline Exwp313 m g/dl and greater High Risk [facility] ArlingtonLDL Iggohpkedfo9944-75-90 05:36:00* Test Item Value Reference Range Interpretation Comments LDL Cholesterol (test code = 2089-1) 86 60-130 [facility] ArlingtonHDL Piobjdyrgeq4438-69-20 05:36:00* Test Item Value Reference Range Interpretation Comments HDL Cholesterol (test code = 2085-9) 49 40-60 [facility] ArlingtonCholesterol/HDL Mdkrn6507-70-80 05:36:00 * Test Item Value Reference Range Interpretation Comments Cholesterol/HDL Ratio (test code = 9830-1) 3.2 3.0-3.6 [facility] ArlingtonWhite Blood Vsfrt7844-74-80 04:57:00* Test Item Value Reference Range Interpretation Comments White Blood Count (test code = 6690-2) 9.04 4.8-10.8 [facility] ArlingtonRed Blood Tgdrl6317-94-00 04:57:00* Test Item Value Reference Range Interpretation Comments Red Blood Count (test code = 789-8) 4.70 3.6-5.1 [facility] ArlingtonHemoglobin2018-09-16 04:57:00* Test Item Value Reference Range Interpretation Comments Hemoglobin (test code = 66401-5) 13.2 12.0-16.0 [facility] ArlingtonHematocrit2018-09-16 04:57:00* Test Item Value Reference Range Interpretation Comments Hematocrit (test code = 4544-3) 40.5 34.2-44.1 [facility] ArlingtonMean Corpuscular Xgrpll9209-63-11 04:57:00* Test Item Value Reference Range Interpretation Comments Mean Corpuscular Volume (test code = 787-2) 86.2 81-99 [facility] ArlingtonMean Corpuscular Kscgvcycwm1442-90-82 04:57:00* Test Item Value Reference Range Interpretation Comments Mean Corpuscular Hemoglobin (test code = 785-6) 28.1 28-32 [facility] ArlingtonMean Corpuscular Hemoglobin Concent 2017-11-05 04:57:00* Test Item Value Reference Range Interpretation Comments Mean Corpuscular Hemoglobin Concent (test code = 786-4) 32.6 31-35 [facility] ArlingtonRed Cell Distribution Yooww4004-73-26 04:57:00* Test Item Value Reference Range Interpretation Comments Red Cell Distribution Width (test code = 81456-1) 13.0 11.7 -14.4 [facility] ArlingtonPlatelet Vlqfx2670-08-51 04:57:00* Test Item Value Reference Range Interpretation Comments Platelet Count (test code = 777-3) 244 140-360 [facility] ArlingtonNeutrophils (%) (Auto)2017-11-05 04:57:00 * Test Item Value Reference Range Interpretation Comments Neutrophils (%) (Auto) (test code = 54641-7) 73.2 38.7-80.0 [facility] ArlingtonLymphocytes (%) (Auto)2017-11-05 04:57:00 * Test Item Value Reference Range Interpretation Comments Lymphocytes (%) (Auto) (test code = 736-9) 17.9 18.0-39.1 L [facility] ArlingtonMonocytes (%) (Auto)2017-11-05 04:57:00* Test Item Value Reference Range Interpretation Comments Monocytes (%) (Auto) (test code = 5905-5) 6.4 4.4-11.3 [facility] ArlingtonEosinophils (%) (Auto)2017-11-05 04:57:00 * Test Item Value Reference Range Interpretation Comments Eosinophils (%) (Auto) (test code = 713-8) 1.9 0.0-6.0 [facility] ArlingtonBasophils (%) (Auto)2017-11-05 04:57:00* Test Item Value Reference Range Interpretation Comments Basophils (%) (Auto) (test code = 706-2) 0.3 0.0-1.0 [facility] ArlingtonIM GRANULOCYTES %2017-11-05 04:57:00* Test Item Value Reference Range Interpretation Comments IM GRANULOCYTES % (test code = IM GRANULOCYTES %) 0.3 0.0- 1.0 [facility] ArlingtonNeutrophils # (Auto)2017-11-05 04:57:00* Test Item Value Reference Range Interpretation Comments Neutrophils # (Auto) (test code = 751-8) 6.6 2.1-6.9 [facility] ArlingtonLymphocytes # (Auto)2017-11-05 04:57:00* Test Item Value Reference Range Interpretation Comments Lymphocytes # (Auto) (test code = 62823-1) 1.6 1.0-3.2 [facility] ArlingtonMonocytes # (Auto)2017-11-05 04:57:00* Test Item Value Reference Range Interpretation Comments Monocytes # (Auto) (test code = 742-7) 0.6 0.2-0.8 [facility] ArlingtonEosinophils # (Auto)2017-11-05 04:57:00* Test Item Value Reference Range Interpretation Comments Eosinophils # (Auto) (test code = 711-2) 0.2 0.0-0.4 [facility] ArlingtonBasophils # (Auto)2017-11-05 04:57:00* Test Item Value Reference Range Interpretation Comments Basophils # (Auto) (test code = 704-7) 0.0 0.0-0.1 [facility] ArlingtonAbsolute Immature Granulocyte (auto 2017-11-05 04:57:00* Test Item Value Reference Range Interpretation Comments Absolute Immature Granulocyte (auto (tari t code = Absolute Immature Granulocyte (auto) 0.03 0-0.1 [facility] ArlingtonCreatine Klsatg9320-13-77 19:46:00* Test Item Value Reference Range Interpretation Comments Creatine Kinase (test code = 2157-6) 43 29-168 [facility] ArlingtonCreatine Kinase QZ3966-87-12 19:46:00* Test Item Value Reference Range Interpretation Comments Creatine Kinase MB (test code = 03672-1) 0.50 0-5.0 [facility] ArlingtonTroponin F1487-01-95 19:46:00* Test Item Value Reference Range Interpretation Comments Troponin I (test code = YMP1853) 0.034 0-0.300 [facility] ArlingtonCHEST SINGLE (PORTABLE)2017-11-04 06:06:00 [facility] [address] [place] [address] Patient Name: GAYLE CHRISTIAN MR #: [id number] : 1955 Age/Sex: 62/F Req #: [id number] Adm Physician: Ordered by: TESFAYE JOHN MD Report #: [id number] Location: ER Room/Bed: Procedure: [id number] DX/CHEST SINGLE (PORTABLE) Exam Date: 11/04/17 Exam Time: 0435 REPORT STA TUS: Signed EXAMINATION: CHEST SINGLE (PORTABLE) INDICATION: Chest discomfort COMPARISON: None FINDINGS: TUBES and JOE ES: None. LUNGS: Lungs are well inflated. Lungs are clear. There is mi ld prominence of the central pulmonary vasculature, consistent with pulmonary venous congestion. PLEURA: No pleural effusion or pneumothorax. HEA RT AND MEDIASTINUM: The cardiomediastinal silhouette is unremarkable. BONES AND SOFT TISSUES: No acute osseous lesion. Soft tissues are unremarkab le. UPPER ABDOMEN: No free air under the diaphragm. IMPRESSION: No acute thoracic abnormality. Signed by: Dr. Donya Iverson M.D. on 11/04 6:06 AM Dictated By: DONYA RAYMOND MD 5 Transcribed By: SALLY on 605 COPY TO: TESFAYE JOHN MD Free Thyroxine Index 2017-11-04 05:04:00* Test Item Value Reference Range Interpretation Comments Free Thyroxine Index (test code = 52333-7) 2.3775 1.4-3.8 [facility] ArlingtonThyroxine (T4)2017-11-04 05:04:00* Test Item Value Reference Range Interpretation Comments Thyroxine (T4) (test code = 3026-2) 8.63 4.5-10.9 Our current method for Total T4 is not recommended for use as the only marker fo r evaluating patients for thyroid disorders.[facility] ArlingtonTriiodothyronine (T3) Litybf1412-77-82 05:04:00* Test Item Value Reference Range Interpretation Comments Triiodothyronine (T3) Uptake (test code = 3050-2) 27.55 22.5 -37.0 [facility] ArlingtonThyroid Stimulating Hormone (TSH) 2017-11-04 05:04:00* Test Item Value Reference Range Interpretation Comments Thyroid Stimulating Hormone (TSH) (test code = 05892-8) 1.984 0.350-4.940 [facility] ArlingtonProthrombin Nngr8076-13-57 04:17:00* Test Item Value Reference Range Interpretation Comments Prothrombin Time (test code = 5902-2) 13.3 11.9-14.5 [facility] ArlingtonProthromb Time International Ratio 2017-11-04 04:17:00* Test Item Value Reference Range Interpretation Comments Prothromb Time International Ratio (test code = 6301-6) 1.09 Oral Anticoagulant Therapy INR Values:1. Low Intensity Therapy 1.5 - 2.02 . Moderate Intensity Therapy 2.0 - 3.03. High Intensity Therapy(1) 2.5 - 3. 54. High Intensity Therapy(2) 3.0 - 4.05. Panic Value INR > 5.0 [facility] ArlingtonActivated Partial Thromboplast Time 2017-11-04 04:17:00* Test Item Value Reference Range Interpretation Comments Activated Partial Thromboplast Time (test code = 89131-5) 30.1 23.8-35.5 [facility]
--- OUTSIDE RECORDS SUMMARY | 2019-09-19 19:24 | XMS REPORT | Continuity of Care Document ---
Author Author [facility] t Organization [facility] Address [address] [place] [address] Phone Unavailable Care Team Providers Care School Clerk Name Role Phone GARRET ENRIQUE, MD OSORIO PCP ELLIE BRUCE Attphys Unavailable GARRET, SANTIAGO Attphys Unavailable ELLIE BRUCE Admphys Unavailable GARRET, SANTIAGO Admphys Unavailable Payers Payer Name Policy Type Policy Number Effective Date Expiration Date Bella winkler [facility] [id number] 2019 00:00:00 [facility] Medicare A & B [id number] 2018 00:00:00 [facility] [id number] 2017 00:00:00 [facility] Problems Condition Name Condition Details Condition Category Status Onset Date Resolution Date Last Treatment Date Treating Clinician Comments Source Bradyarrhythmia Bradyarrhythmia Problem Active [facility] Presence of cardiac pacemaker Pacemaker Problem Active [facility] Pulmonary edema Pulmonary edema Problem Active [facility] Complete atrioventricular block Third degree AV block Problem Active [facility] Dyspnea and respiratory abnormality Problem Active [facility] Allergies, Adverse Reactions, Alerts Allergy Name Allergy Type Status Severity Reaction(s) Onset Date Inacti ve Date Treating Clinician Comments Source benzonatate DA Active NE 2016-05-16 00:00:00 [facility] Social History Social Habit Start Date Stop Date Quantity Comments Source Sex Assigned At 1955 00:00:00 1955 00:00:00 Female [facility] Medications Ordered Medication Name Filled Medication Name Start Date Stop Da te Current Medication? Ordering Clinician Indication Dosage Frequency Signature (SIG) Comments Components Source Guaifenesin/Dextromethorphan (Mucinex Dm Er 1,200-60 M g Tab) 1 Each TBMP.12HR Guaifenesin/Dextromethorphan (Mucinex Dm Er 1,200-60 Mg Tab) 1 Each TBMP.12HR 2019-08-06 17:46:00 Yes 1 Twice A Day [facility] Losartan Potassium Losartan Potassium Yes 2 Da citlali [facility] Metformin Hcl Metformin Hcl Yes 500 Daily [facility] Metoprolol Tartrate Metoprolol Tartrate Yes 25 Twice A Day [facility] Pregabalin (Lyrica) 50 Mg CAP Pregabalin (Lyrica) 50 Mg CAP Yes 50 Every 8 Hours [facility] Amlodipine Besylate Amlodipine Besylate 2017-11-07 00:00:00 No 10 Daily [facility] Vital Signs Vital Name Observation Time Observation Value Comments Source Body Temperature 2019-08-06 16:42:00 99.7 [degF] [facility] Weight 2019-08-06 02:26:00 149.06 [lb_av] [facility] BMI (Body Mass Index) 2019-08-06 02:26:00 26.4 kg/m2 [facility] Procedures This patient has no known procedures. Plan of Care Planned Activity Planned Date Details Comments Source Instructions COVID-19: 05/06/2019 [facility] Instructions Dyspnea [facility] Encounters Start Date/Time End Date/Time [facility] Ad[facility] Encounter ID Source 2017-11-04 07:35:00 2017-11-07 18:10:00 Discharged Inpatient 1 SANTIAGO COMBS [facility] [id number] [facility] Results Test Description Test Time Test Comments Results Result Comments Source Blood leukocytes automated count (number/volume) 2019-08-06 04:40:00 Test Item White Blood Count (test code = 6690-2) 6.49 4.8-10.8 [facility] erythrocytes automated count (number/volume)2019-08-06 04:40:00* Test Item Value Reference Range Interpretation Comments Red Blood Count (test code = 789-8) 4.81 3.6-5.1 [facility] hemoglobin measurement (moles/volume)2019-08-06 04:40:00* Test Item Value Reference Range Interpretation Comments Hemoglobin (test code = 90693-0) 13.4 12.0-16.0 [facility] HospitalAutomated blood hematocrit (volume fraction)2019-08-06 04:40:00* Test Item Value Reference Range Interpretation Comments Hematocrit (test code = 4544-3) 42.6 34.2-44.1 [facility] HospitalAutomated erythrocyte mean corpuscular rfhayg4216-10-24 04:40:00* Test Item Value Reference Range Interpretation Comments Mean Corpuscular Volume (test code = 787-2) 88.6 81-99 [facility] HospitalAutomated erythrocyte mean corpuscular hemoglobin (mass per erythrocyte)2019-08-06 04:40:00* Test Item Value Reference Range Interpretation Comments Mean Corpuscular Hemoglobin (test code = 785-6) 27.9 28-32 [facility] HospitalAutomated erythrocyte mean corpuscular hemoglobin concentration measurement (mass/volume)2019-08-06 04:40:00* Test Item Value Reference Range Interpretation Comments Mean Corpuscular Hemoglobin Concent (test code = 786-4) 31.5 31-35 [facility] HospitalRDW JgaUl-Uhj0790-62-16 04:40:00* Test Item Value Reference Range Interpretation Comments Red Cell Distribution Width (test code = 29289-1) 13.0 11.7 -14.4 [facility] HospitalAutomated blood platelet count (count/volume)2019-08-06 04:40:00* Test Item Value Reference Range Interpretation Comments Platelet Count (test code = 777-3) 176 140-360 [facility] HospitalAutomated blood segmented neutrophil count as percentage of total platgwzvel5133-27-31 04:40:00* Test Item Value Reference Range Interpretation Comments Neutrophils (%) (Auto) (test code = 15305-8) 70.4 38.7-80.0 [facility] HospitalAutomated blood lymphocyte count as percentage ot total wcgizjbckg1460-81-71 04:40:00* Test Item Value Reference Range Interpretation Comments Lymphocytes (%) (Auto) (test code = 736-9) 21.9 18.0-39.1 [facility] HospitalAutomated blood monocyte count as percentage of total ffojddmlxi5665-16-64 04:40:00* Test Item Value Reference Range Interpretation Comments Monocytes (%) (Auto) (test code = 5905-5) 6.5 4.4-11.3 [facility] HospitalAutomated blood eosinophil count as percentage of total ssigazuord6806-67-14 04:40:00* Test Item Value Reference Range Interpretation Comments Eosinophils (%) (Auto) (test code = 713-8) 0.6 0.0-6.0 [facility] HospitalAutomated blood basophil count as percentage of total ffloxsrkir0126-87-51 04:40:00* Test Item Value Reference Range Interpretation Comments Basophils (%) (Auto) (test code = 706-2) 0.3 0.0-1.0 [facility] HospitalFluoroscopic procedure less than one hour xzqzjagf1560-39-81 04:40:00* Test Item Value Reference Range Interpretation Comments IM GRANULOCYTES % (test code = IM GRANULOCYTES %) 0.3 0.0- 1.0 [facility] HospitalAutomated blood neutrophil count 2019-08-06 04:40:00* Test Item Value Reference Range Interpretation Comments Neutrophils # (Auto) (test code = 751-8) 4.6 2.1-6.9 [facility] HospitalBlood lymphocytes count (number/volume) 2019-08-06 04:40:00* Test Item Value Reference Range Interpretation Comments Lymphocytes # (Auto) (test code = 13217-1) 1.4 1.0-3.2 [facility] HospitalBlood monocytes automated count (number/volume)2019-08-06 04:40:00* Test Item Value Reference Range Interpretation Comments Monocytes # (Auto) (test code = 742-7) 0.4 0.2-0.8 [facility] HospitalAutomated blood eosinophil count 2019-08-06 04:40:00* Test Item Value Reference Range Interpretation Comments Eosinophils # (Auto) (test code = 711-2) 0.0 0.0-0.4 [facility] HospitalAutomated blood basophil count (count/volume)2019-08-06 04:40:00* Test Item Value Reference Range Interpretation Comments Basophils # (Auto) (test code = 704-7) 0.0 0.0-0.1 [facility] HospitalFluoroscopic procedure less than one hour aooktacx1713-22-90 04:40:00* Test Item Value Reference Range Interpretation Comments Absolute Immature Granulocyte (auto (tari t code = Absolute Immature Granulocyte (auto) 0.02 0-0.1 [facility] plasma sodium measurement (moles/volume)2019-08-06 04:40:00* Test Item Value Reference Range Interpretation Comments Sodium Level (test code = 2951-2) 140 136-145 [facility]ererum or plasma potassium measurement (moles/volume)2019-08-06 04:40:00* Test Item Value Reference Range Interpretation Comments Potassium Level (test code = 2823-3) 3.8 3.5-5.1 [facility]ererum or plasma chloride measurement (moles/volume)2019-08-06 04:40:00* Test Item Value Reference Range Interpretation Comments Chloride Level (test code = 2075-0) 103 98-107 [facility]ererum or plasma carbon dioxide, total measurement (moles/volume)2019-08-06 04:40:00* Test Item Value Reference Range Interpretation Comments Carbon Dioxide Level (test code = 2028-9) 27 22-29 [facility]ererum or plasma anion azc9470-37-69 04:40:00* Test Item Value Reference Range Interpretation Comments Anion Gap (test code = 19466-8) 13.8 8-16 [facility]ererum or plasma urea nitrogen measurement (mass/volume)2019-08-06 04:40:00* Test Item Value Reference Range Interpretation Comments Blood Urea Nitrogen (test code = 3094-0) 12 7-26 [facility]ererum or plasma creatinine measurement (mass/volume)2019-08-06 04:40:00* Test Item Value Reference Range Interpretation Comments Creatinine (test code = 2160-0) 0.81 0.57-1.11 [facility]ererum or plasma urea nitrogen/creatinine mass hwcfs2831-57-18 04:40:00* Test Item Value Reference Range Interpretation Comments BUN/Creatinine Ratio (test code = 3097-3) 15 6-25 [facility] HospitalEstimated glomerular filtration rate (GFR) egtpeckdihvln8857-36-36 04:40:00* Test Item Value Reference Range Interpretation Comments Estimat Glomerular Filtration Rate (test code = 117910856) > 60 >60 Ranges were taken from the National Kidney Disease Education Program and the [facility]ney Foundation literature.Reference ranges:60 or greater: Yqxabe60-57 ( for 3 consecutive months): Chronic kidney disease 15 or less: Kidney failureDriscoll Children's HospitalGlucose yqsbyokacmj6782-78-42 04:40:00* Test Item Value Reference Range Interpretation Comments Glucose Level (test code = VAC2997) 144 74-118 [facility]ererum or plasma calcium measurement (mass/volume)2019-08-06 04:40:00* Test Item Value Reference Range Interpretation Comments Calcium Level (test code = 19844-9) 9.1 8.4-10.2 [facility]ererum or plasma total bilirubin measurement (mass/volume)2019-08-06 04:40:00* Test Item Value Reference Range Interpretation Comments Total Bilirubin (test code = 1975-2) 0.4 0.2-1.2 [facility] HospitalFluoroscopic procedure less than one hour yjfmnybu1578-50-46 04:40:00* Test Item Value Reference Range Interpretation Comments Aspartate Amino Transf (AST/SGOT) (test code = Aspartate Amino Transf (AST/SGOT)) 35 5-34 [facility]ererum or plasma alanine aminotransferase measurement (enzymatic activity/volume)2019-08-06 04:40:00* Test Item Value Reference Range Interpretation Comments Alanine Aminotransferase (ALT/SGPT) (test code = 1742-6) 32 0-55 [facility] Centererum or plasma protein measurement (mass/volume)2019-08-06 04:40:00* Test Item Value Reference Range Interpretation Comments Total Protein (test code = 2885-2) 7.0 6.5-8.1 [facility] Centererum or plasma albumin measurement (mass/volume)2019-08-06 04:40:00* Test Item Value Reference Range Interpretation Comments Albumin (test code = 1751-7) 3.0 3.5-5.0 [facility] HospitalPlasma globulin measurement (mass/volume) 2019-08-06 04:40:00* Test Item Value Reference Range Interpretation Comments Globulin (test code = 27962-1) 4.0 2.3-3.5 [facility]ererum or plasma albumin/globulin mass lrlrj3999-07-86 04:40:00* Test Item Value Reference Range Interpretation Comments Albumin/Globulin Ratio (test code = 1759-0) 0.8 0.8-2.0 [facility] Centererum or plasma alkaline phosphatase measurement (enzymatic activity/volume)2019-08-06 04:40:00* Test Item Value Reference Range Interpretation Comments Alkaline Phosphatase (test code = 6768-6) 88 40-150 [facility] HospitalCapillary blood glucose measurement by glucometer (mass/volume)2019-08-05 21:32:00* Test Item Value Reference Range Interpretation Comments Bedside Glucose (test code = 05874-9) 114 70-120 Meter ID: [id number] Children's HospitalFluoroscopic procedure less than one hour wbublasg1166-44-69 18:42:00* Test Item Value Reference Range Interpretation [...] under 564(g) of the ACT.Testing performed by [address] SINGLE (PORTABLE)2019-08-05 17:13:00 [place] [address] Patient Name: GAYLE CHRISTIAN MR #: [id number] : 1955 Age/Sex: 64/F Req #: [id number] Adm Physician: ELLIE BRUCE MD Ordered by: STEPHEN ANDRE DO Report #: [id number] Location: [facility] Room/Bed: [place] [address] Procedure: [id number] DX/CHEST SINGLE (PORTABLE) Exam Date: 08/05/19 Exam [...] Kinase (test code = 2157-6) 25 29-168 [facility] Centererum or plasma creatine kinase MB measurement (mass/volume)2019-08-05 16:17:00* Test Item Value Reference Range Interpretation Comments Creatine Kinase MB (test code = 20104-1) 0.30 0-5.0 [facility] HospitalTroponin I measurement by highly sensitive enzyme mdcfzlrrnmq8535-79-25 16:17:00* Test Item Value Reference Range Interpretation Comments Troponin I (test code = 81419-6) 0.004 0-0.300 [facility] HospitalTHYROID PROFILE W/FBI7349-48-94 10:28:00 * Test Item Value Reference Range [...] mIU/mL - XR RIBS UNI W/CXR 3+V JL6913-58-69 09:42:00 [facility] [place] [facility] 1955 Age/S:63 /F [address] [facility] Unit#:[id number] Loc: [place] [address] Phys: Ellie Vaughn DO Dis Date: PHONE #: [phone] Status: REG CLI FAX #: [phone] Exam Date: 05/03/2018 Reason: FALL AT HOME SEVERE PAIN EXAMS: CPT CODE: [id number] XR RIBS UNI W/CXR 3+[place] [address] HISTORY: Fall and pain. COMPARISON: None available. [...] (0942) t.FRANCESR.TH4 Orig Print D/T: S: 05/03/2018 (5086) PAGE 1 Signed Report ECHO COMPLETE (ECHOCARDIOGRAM)2017-11-08 16:42:00 [place] [address] Patient Name : GAYLE CHRISTIAN MR #: [id number] : 1955 Age/Sex: 62/F Adm Physician : [...] wall dimensions. Borderline left ventricular contractil ity. [place] may be hypokinetic. Mitral, aortic and tricuspid [...] 4. Trace mitral and tricuspid regurgitation. Job#: [id number] EV cc: DANIA COMBS MD Signature Date Dictated By: JANICE NICHOLS MD Transcribed By: EDS on 11/08/17 <Electronically signed by JANICE NICHOLS MD> <<Signature on File>>11/18/17 1244 COPY TO: [facility]ARDTBELA9578-52-42 18:01:00 [place] [address] Patient Name: GAYLE CHRISTIAN MR #: [id number] : [birth year] Age/Sex: 62/F Req #: [id number] Adm Physician: SANTIAGO MCDOWELL MD Ordered by: SANTIAGO COMBS MD Report #: [id number] Location: ICU Room/Bed: [place] [address] Procedure: [id number] US/US LI ENE Exam Date: 11/07/17 Exam [...] 11/07/174 COPY TO: SANTIAGO KONG MD Bedside Vahjcqt8425-16-65 17:17:00* Test Item Value Reference Range Interpretation Comments Bedside Glucose (test code = 43125-6) 104 70-120 Meter ID: [id number] Memorial Medical Centerodium Level 2017-11-07 05:17:00* Test Item Value Reference Range Interpretation Comments Sodium Level (test code = 2951-2) 141 136-145 [facility] HospitalPotassium Axhdi5490-35-45 05:17:00* Test Item Value Reference Range Interpretation Comments Potassium Level (test code = 2823-3) 4.5 3.5-5.1 [facility] HospitalChloride Zdwea3777-41-90 05:17:00* Test Item Value Reference Range Interpretation Comments Chloride Level (test code = 2075-0) 105 98-107 [facility] HospitalCarbon Dioxide Jsamr0683-69-47 05:17:00* Test Item Value Reference Range Interpretation Comments Carbon Dioxide Level (test code = 2028-9) 24 22-29 [facility] HospitalAnion Fen9747-96-23 05:17:00* Test Item Value Reference Range Interpretation Comments Anion Gap (test code = 52591-5) 16.5 8-16 H [facility] HospitalBlood Urea Uhtqbhkh6837-74-75 05:17:00* Test Item Value Reference Range Interpretation Comments Blood Urea Nitrogen (test code = 3094-0) 21 7-26 [facility] HospitalCreatinine2018-09-18 05:17:00* Test Item Value Reference Range Interpretation Comments Creatinine (test code = 2160-0) 0.77 0.57-1.11 [facility] HospitalBUN/Creatinine Smbqt2254-05-10 05:17:00* Test Item Value Reference Range Interpretation Comments BUN/Creatinine Ratio (test code = 3097-3) 27 6-25 H [facility] HospitalEstimat Glomerular Filtration Rate 2017-11-07 05:17:00* Test Item Value Reference Range Interpretation Comments Estimat Glomerular Filtration Rate (test code = 372142400) 60- >60 Ranges were taken from the National Kidney Disease Education Program and the [facility] Kidney Foundation literature.Reference ranges:60 or greater: Tzbsnv99-17 ( for 3 consecutive months): Chronic kidney disease 15 or less: Kidney failureDriscoll Children's HospitalGlucose Ovqih6934-58-04 05:17:00* Test Item Value Reference Range Interpretation Comments Glucose Level (test code = MBK0751) 134 74-118 H [facility] HospitalCalcium Bkfwe5643-72-35 05:17:00* Test Item Value Reference Range Interpretation Comments Calcium Level (test code = 83311-7) 9.7 8.4-10.2 [facility] HospitalTotal Dxlrtwvsg4318-52-03 05:17:00* Test Item Value Reference Range Interpretation Comments Total Bilirubin (test code = 1975-2) 0.9 0.2-1.2 [facility] HospitalAspartate Amino Transf (AST/SGOT) 2017-11-07 05:17:00* Test Item Value Reference Range Interpretation Comments Aspartate Amino Transf (AST/SGOT) (test code = Aspartate Amino Transf (AST/SGOT)) 16 5-34 [facility] HospitalAlanine Aminotransferase (ALT/SGPT) 2017-11-07 05:17:00* Test Item Value Reference Range Interpretation Comments Alanine Aminotransferase (ALT/SGPT) (test code = 1742-6) 45 0-55 [facility] HospitalTotal Mdbopdj2534-69-95 05:17:00* Test Item Value Reference Range Interpretation Comments Total Protein (test code = 2885-2) 7.1 6.5-8.1 [facility] HospitalAlbumin2018-09-18 05:17:00* Test Item Value Reference Range Interpretation Comments Albumin (test code = 1751-7) 3.2 3.5-5.0 L [facility] HospitalGlobulin2018-09-18 05:17:00* Test Item Value Reference Range Interpretation Comments Globulin (test code = 10294-6) 3.9 2.3-3.5 H [facility] HospitalAlbumin/Globulin Tdpic5789-66-43 05:17:00 * Test Item Value Reference Range Interpretation Comments Albumin/Globulin Ratio (test code = 1759-0) 0.8 0.8-2.0 [facility] HospitalAlkaline Yfofldaepnm0944-27-64 05:17:00* Test Item Value Reference Range Interpretation Comments Alkaline Phosphatase (test code = 6768-6) 93 40-150 [facility] HospitalFerritin2018-09-17 19:15:00* Test Item Value Reference Range Interpretation Comments Ferritin (test code = 2276-4) 312.90 4.63-204.00 H [facility] HospitalIron Byzux6809-30-88 19:02:00* Test Item Value Reference Range Interpretation Comments Iron Level (test code = 2498-4) 22 50-170 L [facility] HospitalCHEST SINGLE (PORTABLE)2017-11-06 12:49:00 [place] [address] Patient Name: GAYLE CHRISTIAN MR #: [id number] : 1955 Age/Sex: 62/F Req #: [id number] Adm Physician: SANTIAGO COMBS MD Ordered by: JANICE NICHOLS MD Report #: [id number] Location: ICU Room/Bed: [place] [address] Procedure: [id number] DX/CHEST SINGLE (PORTABLE) Exam Date: Exam Time: [...] JANICE NICHOLS MD ECHO COMPLETE (ECHOCARDIOGRAM)2017-11-05 20:18:00 [place] [address] Patient Name : GAYLE CHRISTIAN MR #: [id number] : 1955 Age/Sex: 62/F Adm Physician : SANTIAGO COMBS MD Admit Date : 11/04/17 Location : ICU Room/Bed : [place] [address] REPORT: Cardiology Report DATE OF STUDY: ECHOCARDIOGRAM [...] Trace mitral and tricuspid regurgitation. D Job#: [id number] AKU Si gnature Date Dictated By: JANICE NICHOLS MD Transcribed By: EDS on 11/05/17 <Electronically signed by JANICE NICHOLS MD><<Signature on File>> 11/08/17 1010 COPY TO: PELVIS AP 1-2 EIFSR6525-39-85 12:01:00 [place] [address] Patient Name: GAYLE CHRISTIAN MR #: [id number] : 1955 Age/Sex: 62/F Req #: [id number] Adm Physician: JANICE MORAN MD Ordered by: SANTIAGO COMBS MD Report #: [id number] Location: [facility] Room/Bed: [place] [address] Procedure: [id number] DX/PELVIS AP 1-2 VIEWS Exam Date: 11/05/17 Exam Time: 1145 REPORT STATUS: Signed Pelvis CPT code: 14427 Indication: Tailbo ne pain Technique: Portable AP [...] Interpretation Comments Magnesium Level (test code = 55461-3) 1.7 1.3-2.1 [facility] HospitalTriglycerides Ziaig7986-25-41 05:36:00* Test Item Value Reference Range Interpretation Comments Triglycerides Level (test code = 2571-8) 101 0-149 [facility] HospitalCholesterol Qyhbd1174-35-84 05:36:00* Test Item Value Reference Range Interpretation Comments Cholesterol Level (test code = 2093-3) 155 0-199 Less than 200 mg/dL Low Dqpc339 - 239 mg/dL Borderline Nkmq947 m g/dl and greater High Risk [facility] HospitalLDL Wohigwgcxpd2442-47-02 05:36:00* Test Item Value Reference Range Interpretation Comments LDL Cholesterol (test code = 2089-1) 86 60-130 [facility] HospitalHDL Jhmvongaxeu6420-52-83 05:36:00* Test Item Value Reference Range Interpretation Comments HDL Cholesterol (test code = 2085-9) 49 40-60 [facility] HospitalCholesterol/HDL Lycuy3848-72-96 05:36:00 * Test Item Value Reference Range Interpretation Comments Cholesterol/HDL Ratio (test code = 9830-1) 3.2 3.0-3.6 [facility] HospitalWhite Blood Ztlpu2618-41-09 04:57:00* Test Item Value Reference Range Interpretation Comments White Blood Count (test code = 6690-2) 9.04 4.8-10.8 [facility] HospitalRed Blood Jjwia3734-21-08 04:57:00* Test Item Value Reference Range Interpretation Comments Red Blood Count (test code = 789-8) 4.70 3.6-5.1 [facility] HospitalHemoglobin2018-09-16 04:57:00* Test Item Value Reference Range Interpretation Comments Hemoglobin (test code = 35333-2) 13.2 12.0-16.0 [facility] HospitalHematocrit2018-09-16 04:57:00* Test Item Value Reference Range Interpretation Comments Hematocrit (test code = 4544-3) 40.5 34.2-44.1 [facility] HospitalMean Corpuscular Rvvhya2582-18-64 04:57:00* Test Item Value Reference Range Interpretation Comments Mean Corpuscular Volume (test code = 787-2) 86.2 81-99 [facility] HospitalMean Corpuscular Pqgommmkxa5736-46-23 04:57:00* Test Item Value Reference Range Interpretation Comments Mean Corpuscular Hemoglobin (test code = 785-6) 28.1 28-32 [facility] HospitalMean Corpuscular Hemoglobin Concent 2017-11-05 04:57:00* Test Item Value Reference Range Interpretation Comments Mean Corpuscular Hemoglobin Concent (test code = 786-4) 32.6 31-35 [facility] HospitalRed Cell Distribution Zhdow7876-67-93 04:57:00* Test Item Value Reference Range Interpretation Comments Red Cell Distribution Width (test code = 58637-7) 13.0 11.7 -14.4 [facility] HospitalPlatelet Ronlq7310-58-56 04:57:00* Test Item Value Reference Range Interpretation Comments Platelet Count (test code = 777-3) 244 140-360 [facility] HospitalNeutrophils (%) (Auto)2017-11-05 04:57:00 * Test Item Value Reference Range Interpretation Comments Neutrophils (%) (Auto) (test code = 47216-4) 73.2 38.7-80.0 [facility] HospitalLymphocytes (%) (Auto)2017-11-05 04:57:00 * Test Item Value Reference Range Interpretation Comments Lymphocytes (%) (Auto) (test code = 736-9) 17.9 18.0-39.1 L [facility] HospitalMonocytes (%) (Auto)2017-11-05 04:57:00* Test Item Value Reference Range Interpretation Comments Monocytes (%) (Auto) (test code = 5905-5) 6.4 4.4-11.3 [facility] HospitalEosinophils (%) (Auto)2017-11-05 04:57:00 * Test Item Value Reference Range Interpretation Comments Eosinophils (%) (Auto) (test code = 713-8) 1.9 0.0-6.0 [facility] [facility] ([facility]2017-11-05 04:57:00* Test Item Value Reference Range Interpretation Comments Basophils (%) (Auto) (test code = 706-2) 0.3 0.0-1.0 [facility] %2017-11-05 04:57:00* Test Item Value Reference Range Interpretation Comments IM GRANULOCYTES % (test code = IM GRANULOCYTES %) 0.3 0.0- 1.0 [facility] HospitalNeutrophils # (Auto)2017-11-05 04:57:00* Test Item Value Reference Range Interpretation Comments Neutrophils # (Auto) (test code = 751-8) 6.6 2.1-6.9 [facility] HospitalLymphocytes # (Auto)2017-11-05 04:57:00* Test Item Value Reference Range Interpretation Comments Lymphocytes # (Auto) (test code = 25391-7) 1.6 1.0-3.2 [facility] HospitalMonocytes # (Auto)2017-11-05 04:57:00* Test Item Value Reference Range Interpretation Comments Monocytes # (Auto) (test code = 742-7) 0.6 0.2-0.8 [facility] HospitalEosinophils # (Auto)2017-11-05 04:57:00* Test Item Value Reference Range Interpretation Comments Eosinophils # (Auto) (test code = 711-2) 0.2 0.0-0.4 [facility]Basophils # (Auto)2017-11-05 04:57:00* Test Item Value Reference Range Interpretation Comments Basophils # (Auto) (test code = 704-7) 0.0 0.0-0.1 [facility] HospitalAbsolute Immature Granulocyte (auto 2017-11-05 04:57:00* Test Item Value Reference Range Interpretation Comments Absolute Immature Granulocyte (auto (tari t code = Absolute Immature Granulocyte (auto) 0.03 0-0.1 [facility] HospitalCreatine [id number] 19:46:00* Test Item Value Reference Range Interpretation Comments Creatine Kinase (test code = 2157-6) 43 29-168 [facility] HospitalCreatine Kinase [id number] 19:46:00* Test Item Value Reference Range Interpretation Comments Creatine Kinase MB (test code = 13372-1) 0.50 0-5.0 [facility] HospitalTroponin [id number] 19:46:00* Test Item Value Reference Range Interpretation Comments Troponin I (test code = BHP0892) 0.034 0-0.300 [facility] HospitalCHEST SINGLE (PORTABLE)2017-11-04 06:06:00 [facility] [address] [place] [address] Patient Name: GAYLE CHRISTIAN MR #: [id number] : 1955 Age/Sex: 62/F Req #: [id number] Adm Physician: Ordered by: TESFAYE JOHN MD Report #: [id number] Location: ER Room/Bed: Procedure: [id number] DX/CHEST SINGLE (PORTABLE) Exam Date: 11/04/17 Exam [...] Comments Free Thyroxine Index (test code = 01542-4) 2.3775 1.4-3.8 [facility] HospitalThyroxine (T4)2017-11-04 05:04:00* Test Item Value Reference Range Interpretation Comments Thyroxine (T4) (test code = 3026-2) 8.63 4.5-10.9 Our current method for Total T4 is not recommended for use as the only marker fo r evaluating patients for thyroid disorders.[facility] HospitalTriiodothyronine (T3) [id number] 05:04:00* Test Item Value Reference Range Interpretation Comments Triiodothyronine (T3) Uptake (test code = 3050-2) 27.55 22.5 -37.0 [facility] HospitalThyroid Stimulating Hormone (TSH) 2017-11-04 05:04:00* Test Item Value Reference Range Interpretation Comments Thyroid Stimulating Hormone (TSH) (test code = 66414-5) 1.984 0.350-4.940 [facility] HospitalProthrombin [id number] 04:17:00* Test Item Value Reference Range Interpretation Comments Prothrombin Time (test code = 5902-2) 13.3 11.9-14.5 [facility] HospitalProthromb Time International Ratio 2017-11-04 04:17:00* Test Item Value Reference Range Interpretation Comments Prothromb Time International Ratio (test code = 6301-6) 1.09 Oral Anticoagulant Therapy INR Values:1. Low Intensity Therapy 1.5 - 2.02 . Moderate Intensity Therapy 2.0 - 3.03. High Intensity Therapy(1) 2.5 - 3. 54. High Intensity Therapy(2) 3.0 - 4.05. Panic Value INR > 5.0 [facility] HospitalActivated Partial Thromboplast Time 2017-11-04 04:17:00* Test Item Value Reference Range Interpretation Comments Activated Partial Thromboplast Time (test code = 58906-2) 30.1 23.8-35.5 [facility]
== END 2019-08-06 18:49 | disposition home or self-care (01) ==
LOC: ER 14:34 → INTOOBSV 17:57 → ERHOLD 17:57 → IMCU 23:26
PROVIDERS: ADMIT Internal Medicine; ATTEND Internal Medicine
DX: J12.9 Viral pneumonia, unspecified (principal); I10 Essential (primary) hypertension; E11.9 Type 2 diabetes mellitus without complications; E78.5 Hyperlipidemia, unspecified; Z95.810 Presence of automatic (implantable) cardiac defibrillator
CPT/HCPCS: 36415 ×2; 71045; 80053 ×2; 82550; 82553; 82948 ×2; 84484; 85025 ×2; 87635; 93005; 99285; G0378 ×2; J0456 ×2; J0696 ×2; J1650; J1817; U0002

== ENCOUNTER → 2021-10-13 | Outpatient (CLI) | payer MEDICARE ==
[~2021-10-13] MED LIST changes: +MUCINEX DM ER1 EAC1 PO
== END ==
LOC: RAD 14:32
PROVIDERS: ATTEND Student in an Organized Health Care Education/Training Program
DX: M25.531 Pain in right wrist (principal)

== ENCOUNTER 2022-04-12 14:25 | Inpatient (IN) | payer MEDICARE ==
[~2022-04-12] VITALS: Ht 165.1 cm; Wt 68.0 kg
[~2022-04-12 14:25] MED LIST changes: +AMLODIPINE BESYL5 MG PO; +ASPIRIN81 MG PO; +ATORVASTATIN CA10 MG PO; +CYMBALTA30 MG PO; +EFFIENT10 MG PO
[2022-04-12] MEDS ORDERED: SODIUM CHLORIDE FLUSH 10 ML SYR IV PRN (14:45)
[2022-04-12 14:53] LABS: BASOPHILS % 0.4 % (0.0-1.0); EOSINOPHILS # (AUTO) 0.3 (0.0-0.4); EOSINOPHILS % 3.4 % (0.0-6.0); HEMATOCRIT 42.4 % (34.2-44.1); HEMOGLOBIN 13.8 g/dL (12.0-16.0); LYMPHOCYTES # (AUTO) 2.5 (1.0-3.2); LYMPHOCYTES % 29.7 % (18.0-39.1); MEAN CORPUSCULAR HEMOGLOBIN 28.3 pg (28-32); MEAN CORPUSCULAR HGB CONC 32.5 g/dL (31-35); MEAN CORPUSCULAR VOLUME 86.9 fL (81-99); MONOCYTES # (AUTO) 0.6 (0.2-0.8); MONOCYTES % 6.8 % (4.4-11.3); NEUTROPHILS # (AUTO) 4.9 (2.1-6.9); NEUTROPHILS % 59.1 % (38.7-80.0); PLATELET COUNT 253 x10e3/uL (140-360); RED BLOOD COUNT 4.88 x10e6/uL (3.6-5.1); RED CELL DISTRIBUTION WIDTH 13.1 % (11.7-14.4)
[2022-04-12] MEDS ORDERED: IOPAMIDOL 370 MG/ML 100 ML INFUS..BTL INJ ONE (14:56)
[2022-04-12] MEDS ORDERED: SODIUM CHLORIDE 0.9% 100 ML ONE (14:56)
[2022-04-12 15:03] LABS: INR 0.92; PROTHROMBIN TIME 12.6 seconds (11.9-14.5)
[2022-04-12 15:04] LABS: PARTIAL THROMBOPLASTIN TIME 30.3 seconds (23.8-35.5)
[2022-04-12 15:13] LABS: ALBUMIN 4.2 g/dL (3.5-5.0); ALBUMIN/GLOBULIN RATIO 1.2 (0.8-2.0); ANION GAP 14.9 mmol/L (8-16); CALCIUM 9.7 mg/dL (8.4-10.2); CREATININE, SERUM 0.94 mg/dL (0.57-1.11); POTASSIUM 3.9 mmol/L (3.5-5.1)
[2022-04-12] MEDS ORDERED: ACETAMINOPHEN 325 MG TAB PO ONE (16:00)
[2022-04-12 16:02] LABS: CLARITY,URINE CLEAR (CLEAR); COLOR,URINE YELLOW (YELLOW); LEUKOCYTE ESTERASE ,URINE TRACE (NEGATIVE); NITRITE,URINE NEGATIVE (NEGATIVE)
[2022-04-12 16:03] LABS: KETONES,URINE NEGATIVE (NEGATIVE); PROTEIN,URINE DIPSTICK NEGATIVE (NEGATIVE); URINE UROBILINOGEN 0.2 mg/dL (0.2 - 1)
[2022-04-12 16:21] LABS: BACTERIA,URINE MODERATE /HPF; EPITHELIAL CELLS,URINE FEW /LPF; WBC,URINE (MAN) 0-5 /HPF (0-5)
[2022-04-12] MEDS ORDERED: ASPIRIN 81 MG CHEW TAB PO ONE (16:30)
[2022-04-12] MEDS ORDERED: SODIUM CHLORIDE FLUSH 10 ML SYR INJ PRN (16:30)
[2022-04-12] MEDS ORDERED: ONDANSETRON HCL INJ 2MG/ML 2ML 2 MG/ML VIAL IV PRN (16:30)
[2022-04-12 16:49] LABS: CREATINE KINASE MB 1.3 ng/mL (0-5.0)
[2022-04-12] MEDS: ASPIRIN 81 MG CHEW TAB PO ONE ×2 (17:47→17:56)
[2022-04-12 18:30] VITALS: BP 135/55
[2022-04-12] MEDS ORDERED: PLAVIX75 MG PO (18:53)
[2022-04-12 20:30] VITALS: BP 113/66
[2022-04-12] MEDS: CLOPIDOGREL BISULFATE 75 MG TAB PO SCH (21:21)
[2022-04-12] MEDS: ATORVASTATIN 40 MG TAB PO SCH (21:22)
[2022-04-12 21:30] VITALS: BP 148/55
[2022-04-12 22:00] VITALS: BP 148/55
[2022-04-13] VITALS (8 sets, daily range): BP systolic 113–139; BP diastolic 52–69
[2022-04-13 05:04] LABS: BASOPHILS % 0.4 % (0.0-1.0); EOSINOPHILS # (AUTO) 0.2 (0.0-0.4); EOSINOPHILS % 3.2 % (0.0-6.0); HEMATOCRIT 41.3 % (34.2-44.1); HEMOGLOBIN 13.6 g/dL (12.0-16.0); LYMPHOCYTES # (AUTO) 1.9 (1.0-3.2); LYMPHOCYTES % 25.6 % (18.0-39.1); MEAN CORPUSCULAR HEMOGLOBIN 28.2 pg (28-32); MEAN CORPUSCULAR HGB CONC 32.9 g/dL (31-35); MEAN CORPUSCULAR VOLUME 85.7 fL (81-99); MONOCYTES # (AUTO) 0.5 (0.2-0.8); MONOCYTES % 6.5 % (4.4-11.3); NEUTROPHILS # (AUTO) 4.7 (2.1-6.9); NEUTROPHILS % 63.9 % (38.7-80.0); PLATELET COUNT 235 x10e3/uL (140-360); RED BLOOD COUNT 4.82 x10e6/uL (3.6-5.1); RED CELL DISTRIBUTION WIDTH 12.8 % (11.7-14.4)
[2022-04-13 05:21] LABS: ALBUMIN 3.8 g/dL (3.5-5.0); ALBUMIN/GLOBULIN RATIO 1.2 (0.8-2.0); ANION GAP 15.7 mmol/L (8-16); CALCIUM 9.4 mg/dL (8.4-10.2); CREATININE, SERUM 0.73 mg/dL (0.57-1.11); POTASSIUM 3.7 mmol/L (3.5-5.1)
[2022-04-13] MEDS ORDERED: ACETAMINOPHEN 325 MG TAB PO PRN (08:30)
[2022-04-13 08:33] LABS: CREATINE KINASE MB 0.8 ng/mL (0-5.0)
[2022-04-13] MEDS ORDERED: ASPIRIN 325 MG TAB EC PO SCH (09:00)
[2022-04-13] MEDS: DULOXETINE HCL 30 MG DELAYED RELEASE PO SCH (09:23)
[2022-04-13] MEDS: AMLODIPINE BESYLATE 5 MG TAB PO SCH (09:23)
[2022-04-13] MEDS: LOSARTAN POTASSIUM 25 MG TAB PO SCH (09:23)
[2022-04-13] MEDS: CLOPIDOGREL BISULFATE 75 MG TAB PO SCH (09:24)
[2022-04-13] MEDS: ASPIRIN 81 MG CHEW TAB PO SCH (09:24)
[2022-04-13] MEDS: APIXAB 2.5 MG TABLET PO SCH (16:54)
[2022-04-13] MEDS: ATORVASTATIN 40 MG TAB PO SCH (22:10)
[2022-04-14] VITALS (7 sets, daily range): BP systolic 95–139; BP diastolic 44–73
[2022-04-14] MEDS: AMLODIPINE BESYLATE 5 MG TAB PO SCH (10:26)
[2022-04-14] MEDS: LOSARTAN POTASSIUM 25 MG TAB PO SCH (10:26)
[2022-04-14] MEDS: ASPIRIN 81 MG CHEW TAB PO SCH (10:26)
[2022-04-14] MEDS: APIXAB 2.5 MG TABLET PO SCH ×2 (10:27→16:46)
[2022-04-14] MEDS: CLOPIDOGREL BISULFATE 75 MG TAB PO SCH (10:27)
[2022-04-14] MEDS: DULOXETINE HCL 30 MG DELAYED RELEASE PO SCH (10:27)
[2022-04-14] MEDS: ATORVASTATIN 40 MG TAB PO SCH (20:36)
[2022-04-15] VITALS: BP 128/58
[2022-04-15] MEDS ORDERED: ONDANSETRON HCL 4 MG ORAL DISINTEGRATING TAB PO PRN (08:30)
[2022-04-15 08:37] VITALS: BP 127/71
[2022-04-15 09:05] VITALS: BP 127/71
[2022-04-15] MEDS: APIXAB 2.5 MG TABLET PO SCH (10:05)
[2022-04-15] MEDS: ASPIRIN 81 MG CHEW TAB PO SCH (10:06)
[2022-04-15] MEDS: CLOPIDOGREL BISULFATE 75 MG TAB PO SCH (10:06)
[2022-04-15] MEDS: DULOXETINE HCL 30 MG DELAYED RELEASE PO SCH (10:06)
[2022-04-15] MEDS: LOSARTAN POTASSIUM 25 MG TAB PO SCH (10:06)
[2022-04-15] MEDS: AMLODIPINE BESYLATE 5 MG TAB PO SCH (10:08)
== END 2022-04-15 10:59 | disposition home or self-care (01) | DRG 69 ==
LOC: ER 14:28 → ERHOLD 16:25 → MERGE 16:25 → MED/SURG 18:09
PROVIDERS: ADMIT Internal Medicine; ATTEND Internal Medicine
DX: G45.9 Transient cerebral ischemic attack, unspecified (principal); I48.0 Paroxysmal atrial fibrillation; Z79.01 Long term (current) use of anticoagulants; Z95.0 Presence of cardiac pacemaker; Z20.822 Contact with and (suspected) exposure to COVID-19; I25.10 Atherosclerotic heart disease of native coronary artery without angina pectoris; I49.5 Sick sinus syndrome; Z95.5 Presence of coronary angioplasty implant and graft; E78.5 Hyperlipidemia, unspecified; Z86.73 Personal history of transient ischemic attack (TIA), and cerebral infarction without residual deficits; Z74.09 Other reduced mobility; Z79.899 Other long term (current) drug therapy; Z95.1 Presence of aortocoronary bypass graft
CPT/HCPCS: 36415; 70450; 70496; 70498; 71045; 80053; 81001; 82550; 82553; 82948; 83880; 84484; 85025; 85610; 85730; 93005; 93306; 94760; 95819; 99284; J7050; Q9967

== ENCOUNTER → 2022-07-28 | Day surgery (SDC) | payer MEDICARE ==
[~2022-07-28] MED LIST changes: +LIDOCAINE HCL 2% LOCAL INJ 5 ML SDV VIAL INJ ONE; +PLAVIX75 MG PO; +PROPOFOL IV EMULSION 10 MG/ML 20 ML VIAL ONE
[2022-07-28 07:33] VITALS: TEMP 97.5
[2022-07-28 07:45] VITALS: BP 133/78; PULSE 56; RESP 16; O2SAT 100
== END | disposition home or self-care (01) ==
LOC: OR 05:23
PROVIDERS: ATTEND Internal Medicine Gastroenterology
DX: K21.00 Gastro-esophageal reflux disease with esophagitis, without bleeding (principal); K29.50 Unspecified chronic gastritis without bleeding; K44.9 Diaphragmatic hernia without obstruction or gangrene; E11.9 Type 2 diabetes mellitus without complications; Z79.02 Long term (current) use of antithrombotics/antiplatelets; Z79.84 Long term (current) use of oral hypoglycemic drugs; Z79.899 Other long term (current) drug therapy; Z68.26 Body mass index [BMI] 26.0-26.9, adult; Z86.73 Personal history of transient ischemic attack (TIA), and cerebral infarction without residual deficits; Z95.0 Presence of cardiac pacemaker
CPT/HCPCS: 36415; 43239; 82948; 88305; 88342; J2001; J2704

== ENCOUNTER 2024-05-20 16:24 | Emergency (ER) | payer MEDICARE ==
[~2024-05-20] VITALS: Ht 160 cm; Wt 66.7 kg
[~2024-05-20 16:24] MED LIST changes: +ATORVASTATIN CA20 MG PO; +CLOPIDOGREL75 MG PO; +CYMBALTA30 MG; -LIDOCAINE HCL 2% LOCAL INJ 5 ML SDV VIAL INJ ONE; -PROPOFOL IV EMULSION 10 MG/ML 20 ML VIAL ONE
[2024-05-20 17:01] VITALS: PULSE 87; RESP 16; TEMP 98.6
[2024-05-20] MEDS ORDERED: TRAMADOL HCL 50 MG TAB ONE (17:20)
[2024-05-20] MEDS: TRAMADOL HCL 50 MG TAB PO ONE (17:50)
[2024-05-20] MEDS ORDERED: ONDANSETRON ODT4 MG PO (17:52)
[2024-05-20] MEDS ORDERED: ACETAMINOPHEN-1 EAC4 PO (17:52)
[2024-05-20 18:22] VITALS: BP 118/73; PULSE 78; RESP 18; TEMP 98.2; O2SAT 98
== END 2024-05-20 18:06 | disposition home or self-care (01) ==
LOC: ER 16:32
DX: S52.532A Colles' fracture of left radius, initial encounter for closed fracture (principal); S52.612A Displaced fracture of left ulna styloid process, initial encounter for closed fracture; W18.39XA Other fall on same level, initial encounter; Y93.01 Activity, walking, marching and hiking; Y92.89 Other specified places as the place of occurrence of the external cause; I10 Essential (primary) hypertension; E11.9 Type 2 diabetes mellitus without complications; E78.5 Hyperlipidemia, unspecified; Z95.0 Presence of cardiac pacemaker
CPT/HCPCS: 99284

== ENCOUNTER → 2024-05-29 | Day surgery (SDC) | payer MEDICARE ==
[~2024-05-29] MED LIST changes: +ACETAMINOPHEN 1000 MG/100 ML 100 ML IV ONE; +ACETAMINOPHEN-1 EAC4 PO; +BUPIVACAINE LIPOSOME/PF 266 MG/20 ML IJ ONE; +DEXAMETHASONE SOD PHOS INJ 4 MG/ML SDV ONE; +EPHEDRINE SULFATE INJ 50 MG/ML VIAL ONE; +FAMOTIDINE 20 MG/2 ML VIAL IV ONE; +FENTANYL CITRATE/PF 100MCG/2 ML INJ ONE; +LIDOCAINE HCL 2% LOCAL INJ 5 ML SDV VIAL INJ ONE; +ONDANSETRON HCL INJ 2MG/ML 2ML 2 MG/ML VIAL ONE; +ONDANSETRON ODT4 MG PO; +PHENYLEPHRINE HCL 1% 10 MG/ML VIAL ONE; +PROPOFOL IV EMULSION 10 MG/ML 20 ML VIAL ONE; +ROCURONIUM BROMIDE 1 ML IV ONE; +SEVOFLURANE INHAL SOLN 250 ML PEN BTL ONE; +SODIUM CHLORIDE 0.9% 100 ML ONE; +SUGAMMADEX SODIUM 200 MG/2 ML VIAL IV ONE
[2024-05-29 07:07] LABS: BASOPHILS % 0.5 % (0.0-1.0); EOSINOPHILS # (AUTO) 0.4 (0.0-0.4); EOSINOPHILS % 5.1 % (0.0-6.0); HEMOGLOBIN 14.1 g/dL (12.0-16.0); LYMPHOCYTES # (AUTO) 2.1 (1.0-3.2); LYMPHOCYTES % 26.4 % (18.0-39.1); MEAN CORPUSCULAR HGB CONC 32.8 g/dL (31-35); MEAN CORPUSCULAR VOLUME 88.3 fL (81-99); MONOCYTES # (AUTO) 0.5 (0.2-0.8); MONOCYTES % 6.7 % (4.4-11.3); NEUTROPHILS # (AUTO) 4.9 (2.1-6.9); NEUTROPHILS % 60.7 % (38.7-80.0); PLATELET COUNT 249 x10e3/uL (140-360); RED BLOOD COUNT 4.87 x10e6/uL (3.6-5.1); RED CELL DISTRIBUTION WIDTH 13.2 % (11.7-14.4); WHITE BLOOD COUNT 8.03 x10e3/uL (4.8-10.8)
[2024-05-29] MEDS: CEFAZOLIN SODIUM 2 GM ONE (09:34)
[2024-05-29] MEDS: LACTATED RINGER'S 1,000 ML ONE (09:34)
[2024-05-29 10:26] VITALS: TEMP 97.5
[2024-05-29] MEDS: FENTANYL CITRATE/PF 100MCG/2 ML INJ ONE (11:20)
[2024-05-29] MEDS: HYDROCODONE/APAP 7.5MG-325MG 1 EA TAB ONE (11:20)
[2024-05-29 12:35] VITALS: BP 152/68; PULSE 104; RESP 16; O2SAT 94
== END | disposition home or self-care (01) ==
LOC: OR 06:21
PROVIDERS: ATTEND Orthopaedic Surgery Hand Surgery
DX: S52.572A Other intraarticular fracture of lower end of left radius, initial encounter for closed fracture (principal); I10 Essential (primary) hypertension; E78.5 Hyperlipidemia, unspecified; W18.39XA Other fall on same level, initial encounter; Z79.02 Long term (current) use of antithrombotics/antiplatelets; Z79.82 Long term (current) use of aspirin; Z79.899 Other long term (current) drug therapy
CPT/HCPCS: 25609; 36415; 71046; 85025; 93005; C1713 ×5; C1769; J0131; J0666; J1100; J2003; J2371; J2405; J2704; J3010; J7050; J7121; J1308